=== PATIENT | female | born 1990 | race Hispanic/Latino ===

== ENCOUNTER 2018-06-01 21:08 | Emergency (ER) | payer BC ==
[2018-06-01 22:39] LABS: Absolute Lymphocytes (CBC) 2.3 K/uL (0.7-4.9); Absolute Monocytes 0.6 K/uL (0.1-1.3); Absolute Neutrophil 3.8 K/uL (1.8-8.0); Basophils % 0.7 % (0-1.3); Hematocrit 40.7 % (36.0-45.0); Lymphocytes % 33.4 % (15.3-44.8); MCH 31.1 pg (27.0-35.0); MCV 90.3 fL (80-100); MPV 8.4 fL (7.6-11.3); Monocytes % 8.9 % (3.3-12.3)
[2018-06-01 22:50] LABS: ALT/SGPT 41 U/L (12-78); AST/SGOT 26 U/L (15-37); Albumin 3.5 g/dL (3.4-5.0); Alkaline Phosphatase 69 U/L (45-117); BUN Blood Urea Nitrogen 9 mg/dL (7-18); Bicarbonate 23 mmol/L (21-32); Bilirubin Direct < 0.1 mg/dL (0-0.2); Bilirubin Total 0.2 mg/dL (0.2-1.0); Glucose Level 111 mg/dL (74-106); Lipase 116 U/L (73-393); Sodium Level 140 mmol/L (136-145)
--- NOTE | 2018-06-02 00:37 | EDPHYS ---
Physician Documentation [facility] Name: Olimpia Paz Age: 28 yrs Sex: Female : 1990 Arrival Date: 06/01/2018 Time: 21:12 Bed 6 Private MD: ED Physician Marvin Hahn HPI: 06/01 21:48 This 28 yrs old Female presents to ER via Ambulatory with complaints of Pelvic ps1 Problem. 21:48 patient presenting with lower abdominal pain after having oocyte retrieval in [place]. ps1 Patient had procedure 5 days ago and now has persistent pain. Rated as moderate. Worse with movement and riding in car. No fever. . 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 - Social history:: Smoking status: Patient/guardian denies using tobacco. - Ebola Screening: : Patient denies travel to an Ebola-affected area in the 21 days before illness onset. ROS: 21:48 Constitutional: Negative for fever, chills, and weight loss, Eyes: Negative for injury, ps1 pain, redness, and discharge, ENT: Negative for injury, pain, and discharge, Cardiovascular: Negative for chest pain, palpitations, and edema, Respiratory: Negative for shortness of breath, cough, wheezing, and pleuritic chest pain, Back: Negative for injury and pain, MS/Extremity: Negative for injury and deformity, Skin: Negative for injury, rash, and discoloration, Neuro: Negative for headache, weakness, numbness, tingling, and seizure. 21:48 Abdomen/GI: Positive for abdominal pain. Exam: 21:48 Constitutional: This is a well developed, well nourished patient who is awake, alert, ps1 and in no acute distress. Head/Face: Normocephalic, atraumatic. Eyes: Pupils equal round and reactive to light, extra-ocular motions intact. Lids and lashes normal. Conjunctiva and sclera are non-icteric and not injected. Chest/axilla: Normal chest wall appearance and motion. Nontender with no deformity. No lesions are appreciated. Cardiovascular: Regular rate and rhythm. No gallops, murmurs, or rubs. Normal PMI, no JVD. No pulse deficits. Respiratory: Lungs have equal breath sounds bilaterally, clear to auscultation and percussion. No rales, rhonchi or wheezes noted. No increased work of breathing, no retractions or nasal flaring. Skin: Warm, dry with normal turgor. Normal color with no rashes, no lesions, and no evidence of cellulitis. 21:48 Abdomen/GI: Inspection: abdomen appears normal, Bowel sounds: normal, Palpation: mild abdominal tenderness. Vital Signs: 21:16 BP 142 / 85; Pulse 84; Resp 18; Temp 97.6(TE); Pulse Ox 100% on R/A; Weight 117.93 kg aj1 (R); Height 5 ft. 6 in. (167.64 cm) (R); Pain 10/10; 22:07 BP 116 / 86; Pulse 83; Resp 18; Pulse Ox 98% on R/A; tl2 23:00 BP 111 / 93; Pulse 65; Resp 18; Pulse Ox 99% on R/A; tl2 23:50 BP 114 / 80; Pulse 65; Resp 18; Pulse Ox 97% on R/A; tl2 06/02 00:49 BP 106 / 84; Pulse 72; Resp 18; Pulse Ox 99% on R/A; Pain 2/10; tl2 06/01 21:16 Body Mass Index 41.96 (117.93 kg, 167.64 cm) [facility] MDM: 06/01 22:08 Patient medically screened. ps1 06/02 00:37 Data reviewed: vital signs, nurses notes, lab test result(s), radiologic studies, CT ps1 scan, and as a result, I will discharge patient. Counseling: I had a detailed discussion with the patient and/or guardian regarding: the historical points, exam findings, and any diagnostic results supporting the discharge/admit diagnosis, the need for outpatient follow up. 06/01 22:17 Order name: Basic Metabolic Panel ps1 06/01 22:17 Order name: CBC with Diff ps1 06/01 22:17 Order name: Creatinine for Radiology; Complete Time: 22:49 ps1 06/01 22:17 Order name: Hepatic Function ps1 06/01 22:17 Order name: Lipase ps1 06/01 22:18 Order name: Basic Metabolic Panel; Complete Time: 22:52 EDAZ 06/01 22:17 Order name: IV Saline Lock; Complete Time: 22:18 [facility] 06/01 22:17 Order name: Labs collected and sent; Complete Time: 22:18 [facility] 06/01 22:17 Order name: CT Abd/Pelvis - W/Contrast ps1 06/01 22:18 Order name: CBC with Automated Diff; Complete Time: 22:49 EDMS 06/01 22:18 Order name: Liver (Hepatic) Function; Complete Time: 22:52 EDMS 06/01 22:18 Order name: Lipase; Complete Time: 22:52 EDMS Administered Medications: No medications were administered Disposition: 06/02/18 00:36 Discharged to Home. Impression: Lower abdominal pain, unspecified. - Condition is Stable. - Discharge Instructions: Abdominal Pain, Adult. - Prescriptions for Anaprox DS 550 mg Oral Tablet - take 1 tablet by ORAL route every 12 hours As needed; 20 tablet. Medrol (Bernardo) 4 mg Oral Tablets, Dose Pack - take 1 tablet by ORAL route as directed - follow package instructions; 1 packet. - Medication Reconciliation Form, Thank You Letter, Antibiotic Education, Prescription Opioid Use form. - Follow up: Private Physician; When: As needed; Reason: Recheck today's complaints, Continuance of care, Re-evaluation by your physician. Follow up: Emergency Department; When: As needed; Reason: Fever > 102 F, Trouble breathing, Worsening of condition. - Problem is new. - Symptoms are unchanged. Signatures: Dispatcher [facility] Claudette Morton RN RN aj1 Eve Russell RN RN tl2 Marvin Hahn MD MD ps1 Corrections: (The following items were deleted from the chart) 00:51 00:36 06/02/2018 00:36 Discharged to Home. Impression: Lower abdominal pain, tl2 unspecified. Condition is Stable. Forms are Medication Reconciliation Form, Thank You Letter, Antibiotic Education, Prescription Opioid Use. Follow up: Private Physician; When: As needed; Reason: Recheck today's complaints, Continuance of care, Re-evaluation by your physician. Follow up: Emergency Department; When: As needed; Reason: Fever > 102 F, Trouble breathing, Worsening of condition. Problem is new. Symptoms are unchanged. ps1
--- NOTE | 2018-06-02 00:37 | ER ---
Nurse's Notes [facility] Name: Olimpia Paz Age: 28 yrs Sex: Female : 1990 Arrival Date: 06/01/2018 Time: 21:12 Bed 6 Private MD: Diagnosis: Lower abdominal pain, unspecified Presentation: 06/01 21:13 Presenting complaint: Patient states: She is in the process of IVF, on Monday the did aj1 the egg retrieval, now she has been having suprapubic pain for the past 5 days. Also reports N/V. Denies fever. States she has tried to contact the clinic that has been doing her IVF but she couldn't get a hold of them. Reports heavy vaginal bleeding that started yesterday. Transition of care: patient was not received from another setting of care. Onset of symptoms was May 27, 2018. Risk Assessment: Do you want to hurt yourself or someone else? Patient reports no desire to harm self or others. Initial Sepsis Screen: Does the patient meet any 2 criteria? No. Patient's initial sepsis screen is negative. Does the patient have a suspected source of infection? No. Patient's initial sepsis screen is negative. Care prior to arrival: None. 21:13 Method Of Arrival: Ambulatory aj1 21:13 Acuity: ESTEFANI 3 aj1 Triage Assessment: 21:16 General: Appears in no apparent distress. comfortable, Behavior is calm, cooperative, aj1 appropriate for age. Pain: Complains of pain in suprapubic area Pain currently is 10 out of 10 on a pain scale. Neuro: Level of Consciousness is awake, alert, obeys commands. Cardiovascular: Patient's skin is warm and dry. Respiratory: Airway is patent Respiratory effort is even, unlabored, Respiratory pattern is regular, symmetrical. : Reports vaginal bleeding that is bright red, heavy flow. Derm: Skin is pink, warm \T\ dry. normal. 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 - Social history:: Smoking status: Patient/guardian denies using tobacco. - Ebola Screening: : Patient denies travel to an Ebola-affected area in the 21 days before illness onset. Screenin:29 Abuse screen: Denies threats or abuse. Nutritional screening: No deficits noted. tl2 Tuberculosis screening: No symptoms or risk factors identified. Fall Risk None identified. Assessment: 21:29 General: Appears in no apparent distress. uncomfortable, Behavior is calm, cooperative, tl2 appropriate for age. Pain: Complains of pain in suprapubic area Pain does not radiate. Pain currently is 10 out of 10 on a pain scale. Neuro: Level of Consciousness is awake, alert, obeys commands, Oriented to person, place, time, situation. Cardiovascular: Denies chest pain. Respiratory: Airway is patent Respiratory effort is even, unlabored, Respiratory pattern is regular, symmetrical. GI: Reports nausea, vomiting. : Reports vaginal bleeding that is moderate flow. Derm: Skin is pink, warm \T\ dry. 22:30 Reassessment: Patient appears in no apparent distress at this time. Patient and/or tl2 family updated on plan of care and expected duration. Pain level reassessed. Patient is alert, oriented x 3, equal unlabored respirations, skin warm/dry/pink. 23:50 Reassessment: Patient appears in no apparent distress at this time. Patient and/or tl2 family updated on plan of care and expected duration. Pain level reassessed. Patient is alert, oriented x 3, equal unlabored respirations, skin warm/dry/pink. Awaiting CT results. 06/02 00:49 Reassessment: Patient appears in no apparent distress at this time. Patient and/or tl2 family updated on plan of care and expected duration. Pain level reassessed. Patient is alert, oriented x 3, equal unlabored respirations, skin warm/dry/pink. Pt verbalized understanding of discharge instructions, need for follow up and prescription usage Patient states feeling better. Vital Signs: 06/01 21:16 BP 142 / 85; Pulse 84; Resp 18; Temp 97.6(TE); Pulse Ox 100% on R/A; Weight 117.93 kg aj1 (R); Height 5 ft. 6 in. (167.64 cm) (R); Pain 10/10; 22:07 BP 116 / 86; Pulse 83; Resp 18; Pulse Ox 98% on R/A; tl2 23:00 BP 111 / 93; Pulse 65; Resp 18; Pulse Ox 99% on R/A; tl2 23:50 BP 114 / 80; Pulse 65; Resp 18; Pulse Ox 97% on R/A; tl2 06/02 00:49 BP 106 / 84; Pulse 72; Resp 18; Pulse Ox 99% on R/A; Pain 2/10; tl2 06/01 21:16 Body Mass Index 41.96 (117.93 kg, 167.64 cm) aj1 ED Course: 06/01 21:12 Patient arrived in ED. es 21:12 Kieran Bran MD is Private Physician. es 21:16 Triage completed. aj1 21:16 Arm band placed on Patient placed in an exam room. aj1 21:29 Marvin Hahn MD is Attending Physician. ps1 21:29 Eve Russell, RN is Primary Nurse. tl2 21:29 Patient has correct armband on for positive identification. Bed in low position. Call tl2 light in reach. Side rails up X 1. Adult w/ patient. 21:53 Inserted saline lock: 20 gauge in right antecubital area, using aseptic technique. tl2 Blood collected. 23:[address] via wheelchair. kw1 23:33 CT Abd/Pelvis - W/Contrast In Process Unspecified. EDMS 23:35 CT completed. Patient tolerated procedure well. Patient moved back from CT. kw1 06/02 00:49 No provider procedures requiring assistance completed. IV discontinued, intact, tl2 bleeding controlled, No redness/swelling at site. Pressure dressing applied. Administered Medications: No medications were administered Outcome: 00:36 Discharge ordered by . ps1 00:49 Discharged to home ambulatory, with friend. tl2 00:49 Condition: stable 00:49 Discharge instructions given to patient, Instructed on discharge instructions, follow up and referral plans. medication usage, Demonstrated understanding of instructions, follow-up care, medications, Prescriptions given X 2. 00:51 Patient left the ED. tl2 Signatures: Dispatcher [employer] Claudette Clarke, RN RN aj1 Rupali Camara Taylor, RN RN tl2 Marvin Hahn MD MD ps1 Melony Hannon kw1
--- NOTE | 2018-06-02 23:29 | RAD REPORT ---
EXAM DESCRIPTION: CT - Abdomen Pelvis W Contrast - 06/02/2018 1:14 am CLINICAL HISTORY: Abdominal pain with nausea and vomiting for 5 days. Vaginal bleeding COMPARISON: none. TECHNIQUE: Computed axial tomography of the abdomen pelvis was obtained. 100 cc Isovue-300 was admin istered intravenously. Oral contrast was not requested which limits evaluation of bowel. Preliminary report was generated by [employer] and reviewed prior to this dictation All CT scans are performed using dose optimization technique as appropriate and may include automated exposure control or mA/KV adjustment according to patient size. FINDINGS: The liver, spleen, pancreas, adrenal and kidneys appear unremarkable. There is no evidence of diverticulitis. The appendix is normal The ovaries are enlarged containing prominent follicles. Significant free fluid is not noted IMPRESSION: Enlarged ovaries with prominent follicles secondary to stimulation. Otherwise, unremarkable exam
== END 2018-06-02 00:51 | disposition home or self-care (01) ==
LOC: ER 21:08
DX: R10.30 Lower abdominal pain, unspecified (principal)
CPT/HCPCS: 36415; 74177; 80048; 80076; 83690; 85025; 99284; Q9967

== ENCOUNTER 2018-06-05 22:23 | Emergency (ER) | payer BC ==
[2018-06-05] MEDS ORDERED: CYCLOBENZAPRINE 10 MG TAB ONE (23:23)
[2018-06-05] MEDS ORDERED: TRAMADOL HCL 50 MG TAB ONE (23:24)
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
== END 2018-06-06 00:23 | disposition home or self-care (01) ==
LOC: ER 22:23
DX: S50.11XA Contusion of right forearm, initial encounter (principal); V49.49XA Driver injured in collision with other motor vehicles in traffic accident, initial encounter
CPT/HCPCS: 71046; 99283

== ENCOUNTER 2018-08-24 16:12 | Emergency (ER) | payer BC ==
[2018-08-24 17:26] LABS: Urine Blood NEGATIVE (NEG); Urine Glucose NEGATIVE (NEG); Urine Protein NEGATIVE (NEG); Urine Specific Gravity 1.025 (1.005-1.030)
[2018-08-24 17:30] LABS: Urine Bacteria 20-50 /HPF (<20); Urine Culture Reflex Order NOT NEEDED; Urine RBC <5 /HPF (NONE SEEN)
--- NOTE | 2018-08-24 18:54 | ER ---
Nurse's Notes [facility] Name: Olimpia Paz Age: 28 yrs Sex: Female : 1990 Arrival Date: 08/24/2018 Time: 16:15 Bed 12 Private MD: None, None Diagnosis: related conditions, unspecified Presentation: 08/24 16:16 Presenting complaint: Patient states: n/v, blurry vision, body aches x 3 days. Denies sv fever. Transition of care: patient was not received from another setting of care. Onset of symptoms was August 21, 2018. Care prior to arrival: None. 16:16 Method Of Arrival: Ambulatory sv 16:16 Acuity: ESTEFANI 4 sv 16:41 Risk Assessment: Do you want to hurt yourself or someone else? Patient reports no sv desire to harm self or others. Initial Sepsis Screen: Does the patient meet any 2 criteria? No. Patient's initial sepsis screen is negative. Does the patient have a suspected source of infection? No. Patient's initial sepsis screen is negative. Triage Assessment: 16:16 General: Appears in no apparent distress. comfortable, Behavior is calm, cooperative, sv appropriate for age. General: Reports body aches. Pain: Denies pain. EENT: Reports blurred vision. Neuro: Level of Consciousness is awake, alert, obeys commands, Oriented to person, place, time, situation, Moves all extremities. Full function Gait is steady, Speech is normal. Respiratory: Respiratory effort is even, unlabored, Respiratory pattern is regular, symmetrical. GI: Reports nausea, vomiting. Derm: Skin is pink, warm \T\ dry. Historical: - Allergies: 16:17 No Known Allergies; sv - PMHx: 16:17 Asthma; sv - PSHx: 16:17 None; wrist; sv - Immunization history:: Flu vaccine is not up to date. Adult Immunizations. - Social history:: Smoking status: Patient/guardian denies using tobacco. - Ebola Screening: : No symptoms or risks identified at this time. Screenin:40 Abuse screen: Denies threats or abuse. Denies injuries from another. Nutritional sv screening: No deficits noted. Tuberculosis screening: No symptoms or risk factors identified. Fall Risk None identified. Assessment: 16:40 Reassessment: Patient appears in no apparent distress at this time. No changes from sv previously documented assessment. Patient and/or family updated on plan of care and expected duration. Pain level reassessed. Patient is alert, oriented x 3, equal unlabored respirations, skin warm/dry/pink. 18:10 Reassessment: Patient appears in no apparent distress at this time. No changes from sv previously documented assessment. Patient and/or family updated on plan of care and expected duration. Pain level reassessed. Patient is alert, oriented x 3, equal unlabored respirations, skin warm/dry/pink. 18:58 Reassessment: Patient appears in no apparent distress at this time. No changes from sv previously documented assessment. Patient and/or family updated on plan of care and expected duration. Pain level reassessed. Patient is alert, oriented x 3, equal unlabored respirations, skin warm/dry/pink. Vital Signs: 16:17 BP 120 / 88; Pulse 95; Resp 16; Temp 98.6; Pulse Ox 100% ; Weight 99.79 kg; Height 5 sv ft. 6 in. (167.64 cm); Pain 0/10; 16:17 Body Mass Index 35.51 (99.79 kg, 167.64 cm) sv ED Course: 16:15 Patient arrived in ED. sb2 16:15 None, None is Private Physician. sb2 16:17 Triage completed. sv 16:18 Arm band placed on. sv 16:19 Jerry Levin PA is PHCP. cp 16:19 Jerry Mascorro MD is Attending Physician. cp 16:40 Patient has correct armband on for positive identification. Adult w/ patient. Door sv closed. 16:41 Awaiting lab results. sv 17:53 Test, Serum Sent. la1 18:36 Awaiting lab results. sv 18:58 No provider procedures requiring assistance completed. Patient did not have IV access sv during this emergency room visit. Administered Medications: No medications were administered Outcome: 18:53 Discharge ordered by . cp 18:58 Discharged to home ambulatory, with friend. sv 18:58 Condition: stable 18:58 Discharge instructions given to patient, Instructed on discharge instructions, follow up and referral plans. medication usage, Demonstrated understanding of instructions, follow-up care, medications, Prescriptions given X 1. 18:58 Patient left the ED. sv Signatures: Elba Mora RN RN Marshal Lanier RN RN la1 Jerry Levin PA PA cp Claribel, Saray sb2
--- NOTE | 2018-08-24 18:54 | EDPHYS ---
Physician Documentation [facility] Name: Olimpia Paz Age: 28 yrs Sex: Female : 1990 Arrival Date: 08/24/2018 Time: 16:15 Bed 12 Private MD: None, None ED Physician Jerry Mascorro HPI: 08/24 16:35 This 28 yrs old Female presents to ER via Ambulatory with complaints of Flu cp Symptoms. 16:35 body aches, nausea and vomiting, blurry vision. cp 16:35 Onset: The symptoms/episode began/occurred 3 day(s) ago. Severity of symptoms: in the cp emergency department the symptoms are unchanged. Historical: - Allergies: 16:17 No Known Allergies; sv - PMHx: 16:17 Asthma; sv - PSHx: 16:17 None; wrist; sv - Immunization history:: Flu vaccine is not up to date. Adult Immunizations. - Social history:: Smoking status: Patient/guardian denies using tobacco. - Ebola Screening: : No symptoms or risks identified at this time. ROS: 16:40 Constitutional: Positive for body aches, Negative for fever, poor PO intake. cp 16:40 Eyes: Positive for blurry vision, Negative for discharge, redness, vision loss. cp 16:40 ENT: Negative for drainage from ear(s), ear pain, sore throat, difficulty swallowing, difficulty handling secretions. 16:40 Respiratory: Negative for cough, shortness of breath, wheezing. 16:40 Abdomen/GI: Positive for nausea and vomiting, Negative for abdominal pain, diarrhea, constipation. 16:40 : Negative for urinary symptoms, vaginal bleeding, vaginal discharge. 16:40 Skin: Negative for cellulitis, rash. 16:40 Neuro: Positive for headache, Negative for altered mental status, dizziness, syncope, weakness. 16:40 All other systems are negative. Exam: 16:45 Constitutional: The patient appears in no acute distress, alert, awake, comfortable, cp non-toxic, well developed, well nourished. 16:45 Head/Face: Normocephalic, atraumatic. cp 16:45 Eyes: Periorbital structures: appear normal, Pupils: equal, round, and reactive to light and accomodation, Extraocular movements: intact throughout, Conjunctiva: normal, no exudate, no injection, Sclera: no appreciated abnormality, Lids and lashes: appear normal, bilaterally. 16:45 ENT: External ear(s): are unremarkable, Ear canal(s): are normal, clear, TM's: bulging, is not appreciated, bilaterally, dullness, bilaterally, erythema, is not appreciated, bilaterally, Nose: is normal, Mouth: Lips: moist, Oral mucosa: pink and intact, moist, Posterior pharynx: is normal, airway is patent, no erythema, no exudate. 16:45 Neck: ROM/movement: is normal, is supple, without pain, no range of motions limitations, no meningismus, no nuchal rigidity. 16:45 Chest/axilla: Inspection: normal, Palpation: is normal, no crepitus, no tenderness. 16:45 Cardiovascular: Rate: normal, Rhythm: regular. 16:45 Respiratory: the patient does not display signs of respiratory distress, Respirations: normal, no use of accessory muscles, no retractions, no splinting, no tachypnea, labored breathing, is not present, Breath sounds: are clear throughout, no decreased breath sounds, no stridor, no wheezing. 16:45 Abdomen/GI: Exam negative for discomfort, distension, guarding, Inspection: abdomen appears normal. 16:45 Back: CVA tenderness, is absent. 16:45 Skin: cellulitis, is not appreciated, no rash present. 16:45 Neuro: Orientation: to person, place \T\ time. Mentation: is normal, Cerebellar function: is grossly normal, Motor: is normal, Sensation: is normal. Vital Signs: 16:17 BP 120 / 88; Pulse 95; Resp 16; Temp 98.6; Pulse Ox 100% ; Weight 99.79 kg; Height 5 sv ft. 6 in. (167.64 cm); Pain 0/10; 16:17 Body Mass Index 35.51 (99.79 kg, 167.64 cm) sv MDM: 16:19 Patient medically screened. cp 17:00 Differential Diagnosis flu, UTI, strep throat, . cp 18:52 Data reviewed: vital signs, nurses notes, lab test result(s), and as a result, I will cp discharge patient. 18:52 Counseling: I had a detailed discussion with the patient and/or guardian regarding: the cp historical points, exam findings, and any diagnostic results supporting the discharge/admit diagnosis, lab results, the need for outpatient follow up, an OB/Gyne specialist, to return to the emergency department if symptoms worsen or persist or if there are any questions or concerns that arise at home. 08/24 16:28 Order name: Urine Microscopic Only; Complete Time: 17:32 cp 08/24 17:32 Interpretation: Normal except: UBACT 20-50; SQEPI 20-50. 08/24 16:28 Order name: Influenza Screen (a \T\ B); Complete Time: 17:28 08/24 16:28 Order name: Urine Dipstick-Ancillary (obtain specimen); Complete Time: 16:39 08/24 16:53 Order name: Urine Dipstick--Ancillary (enter results); Complete Time: 17:28 08/24 17:28 Interpretation: Reviewed. 08/24 16:53 Order name: Urine --Ancillary (enter results); Complete Time: 17:28 bd 08/24 17:28 Interpretation: Abnormal: URINE PREG POS. 08/24 17:34 Order name: Test, Serum 08/24 16:28 Order name: Urine Test (obtain specimen); Complete Time: 16:39 cp Administered Medications: No medications were administered Disposition: 19:05 Chart complete. cp Disposition: 08/24/18 18:53 Discharged to Home. Impression: related conditions, unspecified. - Condition is Stable. - Discharge Instructions: First Trimester of . - Prescriptions for Vitamin 27- 0.8 mg Oral Tablet - take 1 tablet by ORAL route once daily; 30 tablet. - Medication Reconciliation Form, Thank You Letter, Antibiotic Education, Prescription Opioid Use form. - Follow up: Private Physician; When: 1 week; Reason: Recheck today's complaints. - Problem is new. - Symptoms are unchanged. Addendum: 08/27/2018 06:51 Co-signature as Attending Physician, Jerry Mascorro MD I agree with the assessment and c lucas plan of care. Signatures: Dispatcher [employer] Elba Rascon RN RN sv Anderson, Corey, MD MD cha Page, Corey, PA PA cp Corrections: (The following items were deleted from the chart) 08/24 18:58 18:53 08/24/2018 18:53 Discharged to Home. Impression: related conditions, sv unspecified. Condition is Stable. Forms are Medication Reconciliation Form, Thank You Letter, Antibiotic Education, Prescription Opioid Use. Follow up: Private Physician; When: 1 week; Reason: Recheck today's complaints. Problem is new. Symptoms are unchanged. cp
== END 2018-08-24 18:58 | disposition home or self-care (01) ==
LOC: ER 16:12
DX: Z33.1 Pregnant state, incidental (principal)
CPT/HCPCS: 36415; 81003; 81015; 81025; 84703; 87804; 99283

== ENCOUNTER 2018-09-02 18:39 | Emergency (ER) | payer BC ==
--- OUTSIDE RECORDS SUMMARY | 2018-09-02 18:41 | XMS REPORT ---
:1990 [facility] Address [address] [place] [address] Dr. Wiley [address] [place] [id number] Care Team Providers Name Role Phone Unavailable Unavailable Unavailable Problems This patient has no known problems. Allergies, Adverse Reactions, Alerts This patient has no known allergies or adverse reactions. Medications This patient has no known medications.
[2018-09-02 20:00] LABS: Absolute Lymphocytes (CBC) 2.6 K/uL (0.7-4.9); Absolute Monocytes 0.7 K/uL (0.1-1.3); Absolute Neutrophil 6.3 K/uL (1.8-8.0); Basophils % 1.5 % (0-1.3); Eosinophils % 1.1 % (0-4.4); Hematocrit 41.8 % (36.0-45.0); Lymphocytes % 26.6 % (15.3-44.8); MPV 8.1 fL (7.6-11.3); RBC Red Blood Cell Count 4.56 M/uL (3.86-4.86)
[2018-09-02 20:09] LABS: Urine Blood 2+ (NEG); Urine Glucose NEGATIVE (NEG); Urine Protein 1+ (NEG); Urine Specific Gravity >1.030 (1.005-1.030); Urine pH 5.5 (5.0-7.0)
[2018-09-02 20:29] LABS: Potassium 4.2 mmol/L (3.5-5.1)
--- NOTE | 2018-09-02 21:19 | RAD REPORT ---
EXAM DESCRIPTION: US - Transvaginal OB - 09/02/2018 8:56 pm CLINICAL HISTORY: VAGINAL BLEEDING COMPARISON: No comparisonsNo comparisons FINDINGS: The uterus measures 9.6 x 5.8 x 4.7 cm. No IUP is evident. Endometrium is mildly thickened measuring 10 mm in heterogenous. The left ovary was obscured by bowel gas. The right ovary is normal in size, shape and echotexture me asuring 4.0 x 3.6 x 2.3 cm. Normal Doppler blood flow was noted in the right ovary. IMPRESSION: No IUP is identified. The endometrial stripe is thickened slightly heterogenous. The pat ient has an elevated HCG level, the findings would indicate a of unknown location at follow -up serial HCG levels and pelvic sonography in 7-10 days would be recommended.
--- NOTE | 2018-09-02 21:23 | EDPHYS ---
Physician Documentation [facility] Name: Olimpia Paz Age: 28 yrs Sex: Female : 1990 Arrival Date: 09/02/2018 Time: 18:42 Bed 16 Private MD: ED Physician Jermaine Stringer HPI: 09/02 21:00 This 28 yrs old Female presents to ER via Ambulatory with complaints of pm1 Vaginal Bleeding, + Preg <12wks. 21:00 The patient presents to the emergency department with vaginal bleeding, with clots. The pm1 estimated gestational age is 5 weeks. course: care: private OB physician, Ultrasound: the patient has not had an ultrasound. Previous pregnancies: in previous pregnancies patient has had ectopic . Associated signs and symptoms: Pertinent negatives: abdominal pain, chest pain, dysuria, fever, nausea, shortness of breath, vomiting. The patient has been recently seen by a physician: Has appointment with freight representative on . Patient with IVF and implantation of two eggs. 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 - Social history:: Smoking status: Patient/guardian denies using tobacco. - Ebola Screening: : No symptoms or risks identified at this time. ROS: 21:00 Constitutional: Negative for fever, chills, and weight loss, Eyes: Negative for injury, pm1 pain, redness, and discharge, ENT: Negative for injury, pain, and discharge, Neck: Negative for injury, pain, and swelling, Cardiovascular: Negative for chest pain, palpitations, and edema, Respiratory: Negative for shortness of breath, cough, wheezing, and pleuritic chest pain. 21:00 Abdomen/GI: Negative for abdominal pain, nausea, vomiting, diarrhea, and constipation, Back: Negative for injury and pain. 21:00 MS/Extremity: Negative for injury and deformity, Skin: Negative for injury, rash, and discoloration, Neuro: Negative for headache, weakness, numbness, tingling, and seizure. 21:00 : Positive for vaginal bleeding, Negative for urinary symptoms, flank pain, burning with urination, vaginal itching. Exam: 21:00 Constitutional: This is a well developed, well nourished patient who is awake, alert, pm1 and in no acute distress. Head/Face: Normocephalic, atraumatic. Eyes: Pupils equal round and reactive to light, extra-ocular motions intact. Lids and lashes normal. Conjunctiva and sclera are non-icteric and not injected. Cornea within normal limits. Periorbital areas with no swelling, redness, or edema. ENT: Nares patent. No nasal discharge, no septal abnormalities noted. Tympanic membranes are normal and external auditory canals are clear. Oropharynx with no redness, swelling, or masses, exudates, or evidence of obstruction, uvula midline. Mucous membranes moist. Neck: Trachea midline, no thyromegaly or masses palpated, and no cervical lymphadenopathy. Supple, full range of motion without nuchal rigidity, or vertebral point tenderness. No Meningismus. Chest/axilla: Normal chest wall appearance and motion. Nontender with no deformity. No lesions are appreciated. Cardiovascular: Regular rate and rhythm with a normal S1 and S2. No gallops, murmurs, or rubs. Normal PMI, no JVD. No pulse deficits. Respiratory: Lungs have equal breath sounds bilaterally, clear to auscultation and percussion. No rales, rhonchi or wheezes noted. No increased work of breathing, no retractions or nasal flaring. 21:00 Back: No spinal tenderness. No costovertebral tenderness. Full range of motion. Skin: Warm, dry with normal turgor. Normal color with no rashes, no lesions, and no evidence of cellulitis. MS/ Extremity: Pulses equal, no cyanosis. Neurovascular intact. Full, normal range of motion. 21:00 Abdomen/GI: Inspection: abdomen appears normal, Bowel sounds: normal, Palpation: abdomen is soft and non-tender, mass, is not appreciated, rebound tenderness, is not appreciated. 21:00 Neuro: Orientation: is normal, Motor: is normal, moves all fours. Vital Signs: 19:12 BP 147 / 97; Pulse 102; Resp 18; Temp 97.9; Pulse Ox 98% on R/A; Weight 99.79 kg; la1 Height 5 ft. 6 in. (167.64 cm); 20:17 BP 133 / 82; Pulse 94; Resp 17 S; Pulse Ox 100% on R/A; cc3 21:14 BP 126 / 87; Pulse 95; Resp 17 S; Pulse Ox 100% on R/A; cc3 19:12 Body Mass Index 35.51 (99.79 kg, 167.64 cm) la1 MDM: 19:34 Patient medically screened. pm1 20:52 Data reviewed: vital signs. Data interpreted: Pulse oximetry: on room air is 98 %. pm1 Interpretation: normal. 21:22 Counseling: I had a detailed discussion with the patient and/or guardian regarding: the pm1 historical points, exam findings, and any diagnostic results supporting the discharge/admit diagnosis, lab results, radiology results, the need for outpatient follow up, to return to the emergency department if symptoms worsen or persist or if there are any questions or concerns that arise at home. 21:22 ED course: Patient with vaginal bleeding with clots that started today. No abdominal pm1 pain or back pain. with IVF and implantation. Approximately 5 weeks . Since patient does not have any back or abdominal pain or tenderness will discharge the patient to repeat beta HCG in 48 hours with possible U/S in the ER here.. 09/02 19:28 Order name: Quantitative Hcg; Complete Time: 20:32 pm1 09/02 19:28 Order name: Abo/rh Typing; Complete Time: 20:37 pm1 09/02 19:28 Order name: Basic Metabolic Panel; Complete Time: 20:32 pm1 09/02 19:28 Order name: CBC with Diff; Complete Time: 20:32 pm1 09/02 19:39 Order name: Urine Dipstick--Ancillary (enter results); Complete Time: 20:32 mw2 09/02 19:39 Order name: Urine --Ancillary (enter results); Complete Time: 20:32 mw2 09/02 19:28 Order name: Urine Test (obtain specimen); Complete Time: 19:29 pm1 09/02 19:28 Order name: IV Saline Lock; Complete Time: 19:50 pm1 09/02 19:28 Order name: Labs collected and sent; Complete Time: 19:51 pm1 09/02 19:28 Order name: NPO; Complete Time: 19:51 pm1 09/02 19:28 Order name: Urine Dipstick-Ancillary (obtain specimen); Complete Time: 19:29 pm1 09/02 19:28 Order name: US Transvaginal Ob; Complete Time: 21:22 pm1 09/02 20:40 Order name: ABO/RH no charge; Complete Time: 20:41 EDMS Administered Medications: No medications were administered Disposition: 09/03 02:24 Co-signature as Attending Physician, Jermaine Stringer MD. pkl Disposition: 09/02/18 21:23 Discharged to Home. Impression: Threatened . - Condition is Stable. - Discharge Instructions: Threatened Miscarriage, Pelvic Rest. - Medication Reconciliation Form, Thank You Letter form. - Follow up: Private Physician; When: 48 Hours; Reason: Recheck today's complaints, Continuance of care, Repeat Beta-HCG (48 Hours), Re-evaluation by your physician. Follow up: Emergency Department; When: 48 Hours; Reason: Recheck today's complaints, Repeat Beta-HCG (48 Hours). - Problem is new. - Symptoms have improved. Signatures: Dispatcher [employer] EDMS Jermaine Stringer MD MD pkMarshal Dominguez RN RN la1 Gennaro Pickens, PAEDIATRIC PHYSIOTHERAPIST PAEDIATRIC PHYSIOTHERAPIST pm1 Ariana Winchester cc3 Corrections: (The following items were deleted from the chart) 09/02 21:38 21:23 09/02/2018 21:23 Discharged to Home. Impression: Threatened . Condition cc3 is Stable. Forms are Medication Reconciliation Form, Thank You Letter, Antibiotic Education, Prescription Opioid Use. Follow up: Private Physician; When: 48 Hours; Reason: Recheck today's complaints, Continuance of care, Repeat Beta-HCG (48 Hours), Re-evaluation by your physician. Follow up: Emergency Department; When: 48 Hours; Reason: Recheck today's complaints, Repeat Beta-HCG (48 Hours). Problem is new. Symptoms have improved. pm1
--- NOTE | 2018-09-02 21:23 | ER ---
Nurse's Notes [facility] Name: Olimpia Paz Age: 28 yrs Sex: Female : 1990 Arrival Date: 09/02/2018 Time: 18:42 Bed 16 Private MD: Diagnosis: Threatened Presentation: 09/02 19:11 Presenting complaint: Patient states: I am via AVF and told I was 5 weeks la1 today. I started bleeding a few minutes ago when I wiped. Pt denies pain or cramping. Transition of care: patient was not received from another setting of care. Onset of symptoms was September 02, 2018. Risk Assessment: Do you want to hurt yourself or someone else? Patient reports no desire to harm self or others. Initial Sepsis Screen: Does the patient meet any 2 criteria? No. Patient's initial sepsis screen is negative. Does the patient have a suspected source of infection? No. Patient's initial sepsis screen is negative. Care prior to arrival: None. 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 - Social history:: Smoking status: Patient/guardian denies using tobacco. - Ebola Screening: : No symptoms or risks identified at this time. Screenin:15 Abuse screen: Denies threats or abuse. Denies injuries from another. Nutritional cc3 screening: No deficits noted. Tuberculosis screening: No symptoms or risk factors identified. Fall Risk Ambulatory Aid- None/Bed Rest/Nurse Assist (0 pts). Gait- Normal/Bed Rest/Wheelchair (0 pts) Mental Status- Oriented to own ability (0 pts). Assessment: 19:15 Obstetrical Assessment: General assessment: awake and alert, skin warm and dry, cc3 respirations even and unlabored. General: Appears in no apparent distress. comfortable, Behavior is calm, cooperative, appropriate for age. Pain: Denies pain. Neuro: Level of Consciousness is awake, alert, obeys commands, Oriented to person, place, time, situation, Appropriate for age. Cardiovascular: Denies chest pain. Respiratory: Airway is patent Respiratory effort is even, unlabored, Respiratory pattern is regular, symmetrical. GI: Abdomen is round non-distended. : Reports vaginal bleeding that is spotty, since today. EENT: No signs and/or symptoms were reported regarding the EENT system. Derm: No signs and/or symptoms reported regarding the dermatologic system. Musculoskeletal: Circulation, motion, and sensation intact. Range of motion: intact in all extremities. 20:20 Reassessment: Patient appears in no apparent distress at this time. Patient and/or cc3 family updated on plan of care and expected duration. Pain level reassessed. Patient is alert, oriented x 3, equal unlabored respirations, skin warm/dry/pink. 21:17 Reassessment: Patient appears in no apparent distress at this time. Patient and/or cc3 family updated on plan of care and expected duration. Pain level reassessed. Patient is alert, oriented x 3, equal unlabored respirations, skin warm/dry/pink. 21:35 Reassessment: TANVI Feldman discharged the patient home, no prescription given. IV cannula cc3 removed and patient left ER vitally stable and ambulatory with her . Vital Signs: 19:12 BP 147 / 97; Pulse 102; Resp 18; Temp 97.9; Pulse Ox 98% on R/A; Weight 99.79 kg; la1 Height 5 ft. 6 in. (167.64 cm); 20:17 BP 133 / 82; Pulse 94; Resp 17 S; Pulse Ox 100% on R/A; cc3 21:14 BP 126 / 87; Pulse 95; Resp 17 S; Pulse Ox 100% on R/A; cc3 19:12 Body Mass Index 35.51 (99.79 kg, 167.64 cm) la1 ED Course: 18:42 Patient arrived in ED. mr 19:12 Triage completed. la1 19:12 Arm band placed on right wrist. la1 19:14 Ariana Winchester is Primary Nurse. cc3 19:15 Patient has correct armband on for positive identification. Bed in low position. Call cc3 light in reach. Side rails up X 1. Pulse ox on. NIBP on. 19:28 Gennaro Pickens NP is PHCP. pm1 19:28 Jermaine Stringer MD is Attending Physician. pm1 19:35 Inserted saline lock: 20 gauge in left antecubital area, using aseptic technique. Blood cc3 collected. 19:50 Radiology exam delayed due to lab results not completed at this time. test sg3 not completed at this time. 20:56 Ultrasound completed. Patient tolerated well. Notified REVENUE DIRECTOR/LONG feldman. sg3 20:58 US Transvaginal Ob In Process Unspecified. EDMS 21:35 No provider procedures requiring assistance completed. IV discontinued, intact, cc3 bleeding controlled, No redness/swelling at site. Pressure dressing applied. Administered Medications: No medications were administered Outcome: 21:23 Discharge ordered by MD. pm1 21:35 Discharged to home ambulatory, with family. cc3 21:35 Condition: stable 21:35 Discharge instructions given to patient, family, Instructed on discharge instructions, follow up and referral plans. Demonstrated understanding of instructions, follow-up care. 21:38 Patient left the ED. cc3 Signatures: Dispatcher [employer] [facility] Jyoti Corrales Lee RN RN la1 Gennaro Pickens NP REVENUE DIRECTOR pm1 Yumiko Castaneda sg3 Ariana Winchester cc3
== END 2018-09-02 21:38 | disposition home or self-care (01) ==
LOC: ER 18:39
DX: O20.0 Threatened abortion (principal); Z3A.01 Less than 8 weeks gestation of pregnancy
CPT/HCPCS: 36415; 76817; 80048; 81003; 81025; 84702; 85025; 86900; 86901; 99284

== ENCOUNTER 2018-09-04 19:33 | Emergency (ER) | payer BC ==
--- OUTSIDE RECORDS SUMMARY | 2018-09-04 19:35 | XMS REPORT ---
:1990 [facility] Address [address] [place] [address] Dr. Wiley [address] [place] [id number] Care Team Providers Name Role Phone Unavailable Unavailable Unavailable Problems This patient has no known problems. Allergies, Adverse Reactions, Alerts This patient has no known allergies or adverse reactions. Medications This patient has no known medications.
--- NOTE | 2018-09-04 21:17 | ER ---
Nurse's Notes [facility] Name: Olimpia Paz Age: 28 yrs Sex: Female : 1990 Arrival Date: 09/04/2018 Time: 19:35 Bed 12 Private MD: Diagnosis: Threatened Presentation: 09/04 20:02 Presenting complaint: Patient states: Here to have HCG levels rechecked after visit 2 aj days ago. Patient denies vaginal bleeding or pain. Transition of care: patient was not received from another setting of care. Onset of symptoms was September 04, 2018. Risk Assessment: Do you want to hurt yourself or someone else? Patient reports no desire to harm self or others. Initial Sepsis Screen: Does the patient meet any 2 criteria? No. Patient's initial sepsis screen is negative. Does the patient have a suspected source of infection? No. Patient's initial sepsis screen is negative. Care prior to arrival: None. 20:02 Method Of Arrival: Ambulatory aj 20:02 Acuity: ESTEFANI 4 aj Triage Assessment: 20:05 General: Appears in no apparent distress. comfortable, Behavior is calm, cooperative, aj appropriate for age. Pain: Denies pain. Neuro: Level of Consciousness is awake, alert, obeys commands, Oriented to person, place, time, situation, Appropriate for age. Respiratory: Airway is patent Respiratory effort is even, unlabored, Respiratory pattern is regular, symmetrical. Derm: Skin is intact, is healthy with good turgor, Skin is pink, warm \T\ dry. normal. 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 - Social history:: Smoking status: Patient/guardian denies using tobacco. - Ebola Screening: : Patient negative for fever greater than or equal to 101.5 degrees Fahrenheit, and additional compatible Ebola Virus Disease symptoms Patient denies exposure to infectious person Patient denies travel to an Ebola-affected area in the 21 days before illness onset No symptoms or risks identified at this time. Screenin:30 Abuse screen: Denies threats or abuse. Denies injuries from another. Nutritional aa1 screening: No deficits noted. Tuberculosis screening: No symptoms or risk factors identified. Fall Risk None identified. Assessment: 20:30 General: Appears in no apparent distress. comfortable, Behavior is calm, cooperative, aa1 appropriate for age. Pain: Denies pain. Neuro: Level of Consciousness is awake, alert, obeys commands, Oriented to person, place, time, situation. Respiratory: Airway is patent Respiratory effort is even, unlabored, Respiratory pattern is regular, symmetrical. GI: No signs and/or symptoms were reported involving the gastrointestinal system. : Denies pain vaginal bleeding. EENT: No signs and/or symptoms were reported regarding the EENT system. Derm: Skin is intact, is healthy with good turgor, Skin is pink, warm \T\ dry. Musculoskeletal: Circulation, motion, and sensation intact. Capillary refill < 3 seconds. 21:40 Reassessment: Patient appears in no apparent distress at this time. Patient is alert, aa1 oriented x 3, equal unlabored respirations, skin warm/dry/pink. Discussed d/c \T\ f/u instructions with pt \T\ spouse; denies questions or concerns at this time. Vital Signs: 20:05 BP 144 / 90; Pulse 86; Resp 20; Temp 98.6; Pulse Ox 99% on R/A; Weight 99.79 kg; Height aj 5 ft. 6 in. (167.64 cm); 21:40 BP 132 / 81; Pulse 83; Resp 16; Temp 98.5; Pulse Ox 97% on R/A; Pain 0/10; aa1 20:05 Body Mass Index 35.51 (99.79 kg, 167.64 cm) aj ED Course: 19:35 Patient arrived in ED. es 20:04 Triage completed. aj 20:05 Arm band placed on left wrist. Patient placed in an exam room. aj 20:07 Gennaro Pickens NP is PHCP. pm1 20:07 Jermaine Stringer MD is Attending Physician. pm1 20:30 Patient has correct armband on for positive identification. Bed in low position. Call aa1 light in reach. 21:40 No provider procedures requiring assistance completed. Patient did not have IV access aa1 during this emergency room visit. 21:44 Nallely Mena, RN is Primary Nurse. aa1 Administered Medications: No medications were administered Outcome: 21:16 Discharge ordered by MD. pm1 21:40 Discharged to home ambulatory, with significant other. aa1 21:40 Condition: good 21:40 Discharge instructions given to patient, significant other, Instructed on discharge instructions, follow up and referral plans. Demonstrated understanding of instructions, follow-up care. 21:44 Patient left the ED. aa1 Signatures: Nallely Mena, RN RN aa1 Valarie Cueto RN RN aj Salyer, Edna es Marinas, Patrick, NP SAFETY ADMIN ASSISTANT pm1
--- NOTE | 2018-09-04 21:17 | EDPHYS ---
Physician Documentation [facility] Name: lOimpia Paz Age: 28 yrs Sex: Female : 1990 Arrival Date: 09/04/2018 Time: 19:35 Bed 12 Private MD: ED Physician Jermaine Stringer HPI: 09/04 20:52 This 28 yrs old Female presents to ER via Ambulatory with complaints of Repeat pm1 Beta HCG. 20:52 Associated signs and symptoms: Pertinent negatives: constipation, cramping, diarrhea, pm1 dysuria, fever, nausea, vaginal bleeding, vaginal discharge, vomiting. Severity of symptoms: in the emergency department the symptoms a " 0" out of "10". The patient is sexually active, reportedly has a single partner. The patient has been recently seen at the [facility] Emergency Department, 2 days ago. Patient was seen here 2 days ago with a complaint of vagina bleeding. Patient did not have any pain at that time. Patient believes that she is 5 weeks and had 2 fertilized eggs implanted. Patient only had vaginal bleeding two days ago. No bleeding yesterday and today. Patient has not had any pain since onset of bleeding. 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 - Social history:: Smoking status: Patient/guardian denies using tobacco. - Ebola Screening: : Patient negative for fever greater than or equal to 101.5 degrees Fahrenheit, and additional compatible Ebola Virus Disease symptoms Patient denies exposure to infectious person Patient denies travel to an Ebola-affected area in the 21 days before illness onset No symptoms or risks identified at this time. ROS: 20:52 Negative for flank pain, vaginal bleeding, vaginal discharge. pm1 20:52 Constitutional: Negative for fever, chills, and weight loss, Eyes: Negative for injury, pain, redness, and discharge, ENT: Negative for injury, pain, and discharge, Neck: Negative for injury, pain, and swelling, Cardiovascular: Negative for chest pain, palpitations, and edema, Respiratory: Negative for shortness of breath, cough, wheezing, and pleuritic chest pain, Abdomen/GI: Negative for abdominal pain, nausea, vomiting, diarrhea, and constipation, Back: Negative for injury and pain, MS/Extremity: Negative for injury and deformity, Skin: Negative for injury, rash, and discoloration, Neuro: Negative for headache, weakness, numbness, tingling, and seizure. Exam: 20:52 Constitutional: This is a well developed, well nourished patient who is awake, alert, pm1 and in no acute distress. Head/Face: Normocephalic, atraumatic. Eyes: Pupils equal round and reactive to light, extra-ocular motions intact. Lids and lashes normal. Conjunctiva and sclera are non-icteric and not injected. Cornea within normal limits. Periorbital areas with no swelling, redness, or edema. ENT: Nares patent. No nasal discharge, no septal abnormalities noted. Tympanic membranes are normal and external auditory canals are clear. Oropharynx with no redness, swelling, or masses, exudates, or evidence of obstruction, uvula midline. Mucous membranes moist. Neck: Trachea midline, no thyromegaly or masses palpated, and no cervical lymphadenopathy. Supple, full range of motion without nuchal rigidity, or vertebral point tenderness. No Meningismus. Chest/axilla: Normal chest wall appearance and motion. Nontender with no deformity. No lesions are appreciated. Cardiovascular: Regular rate and rhythm with a normal S1 and S2. No gallops, murmurs, or rubs. Normal PMI, no JVD. No pulse deficits. Respiratory: Lungs have equal breath sounds bilaterally, clear to auscultation and percussion. No rales, rhonchi or wheezes noted. No increased work of breathing, no retractions or nasal flaring. Abdomen/GI: Soft, non-tender, with normal bowel sounds. No distension or tympany. No guarding or rebound. No evidence of tenderness throughout. Back: No spinal tenderness. No costovertebral tenderness. Full range of motion. Skin: Warm, dry with normal turgor. Normal color with no rashes, no lesions, and no evidence of cellulitis. MS/ Extremity: Pulses equal, no cyanosis. Neurovascular intact. Full, normal range of motion. 20:52 Neuro: Orientation: is normal, Motor: is normal, moves all fours, Gait: is steady, at a normal pace, without difficulty. Vital Signs: 20:05 BP 144 / 90; Pulse 86; Resp 20; Temp 98.6; Pulse Ox 99% on R/A; Weight 99.79 kg; Height aj 5 ft. 6 in. (167.64 cm); 21:40 BP 132 / 81; Pulse 83; Resp 16; Temp 98.5; Pulse Ox 97% on R/A; Pain 0/10; aa1 20:05 Body Mass Index 35.51 (99.79 kg, 167.64 cm) aj MDM: 20:08 Patient medically screened. pm1 21:15 Data reviewed: vital signs. Data interpreted: Pulse oximetry: on room air is 99 %. pm1 Interpretation: normal. Counseling: I had a detailed discussion with the patient and/or guardian regarding: the historical points, exam findings, and any diagnostic results supporting the discharge/admit diagnosis, lab results, the need for outpatient follow up, to return to the emergency department if symptoms worsen or persist or if there are any questions or concerns that arise at home. 21:19 ED course: Patient with 2354 Beta HCG two days ago. Repeat 48 hours later is 565. pm1 Patient without any vaginal bleeding or pain present. Vaginal bleeding stopped two days ago. Patient with likely miscarriage of both implanted fertilized eggs. She has appointment with her jewelry consultant on . 09/04 20:07 Order name: Quantitative Hcg; Complete Time: 20:52 aj Administered Medications: No medications were administered Disposition: 23:23 Co-signature as Attending Physician, Jermaine Stringer MD. pkl Disposition: 09/04/18 21:16 Discharged to Home. Impression: Threatened . - Condition is Stable. - Discharge Instructions: Threatened Miscarriage, Pelvic Rest. - Medication Reconciliation Form, Thank You Letter form. - Follow up: Emergency Department; When: As needed; Reason: Worsening of condition. Follow up: Private Physician; When: 2 - 3 days; Reason: Recheck today's complaints, Continuance of care, Re-evaluation by your physician. - Problem is new. - Symptoms have improved. Signatures: Dispatcher [employer] JIGNESHDC Nallely Mena RN RN aa1 Valarie Cueto RN RN aj Lam, Pin, MD MD pkGennaro Zaragoza, LINING PRINTER LINING PRINTER pm1 Corrections: (The following items were deleted from the chart) 21:44 21:16 09/04/2018 21:16 Discharged to Home. Impression: Threatened . Condition aa1 is Stable. Forms are Medication Reconciliation Form, Thank You Letter, Antibiotic Education, Prescription Opioid Use. Follow up: Emergency Department; When: As needed; Reason: Worsening of condition. Follow up: Private Physician; When: 2 - 3 days; Reason: Recheck today's complaints, Continuance of care, Re-evaluation by your physician. Problem is new. Symptoms have improved. pm1
== END 2018-09-04 21:44 | disposition home or self-care (01) ==
LOC: ER 19:33
DX: O20.0 Threatened abortion (principal); Z3A.01 Less than 8 weeks gestation of pregnancy
CPT/HCPCS: 36415; 84702; 99281

== ENCOUNTER 2019-02-24 11:50 | Emergency (ER) | payer BC ==
--- OUTSIDE RECORDS SUMMARY | 2019-02-24 11:53 | XMS REPORT ---
:1990 Author Organization [facility] Address [address] [place] [address] Dr. Wiley [address] [place] [id number] Care Team Providers Name Role Phone Unavailable Unavailable Unavailable Problems This patient has no known problems. Allergies, Adverse Reactions, Alerts This patient has no known allergies or adverse reactions. Medications This patient has no known medications.
[2019-02-24 13:35] LABS: Urine Blood 2+ (NEG); Urine Glucose NEGATIVE (NEG); Urine Protein TRACE (NEG); Urine Specific Gravity 1.025 (1.005-1.030); Urine pH 5.5 (5.0-7.0)
--- NOTE | 2019-02-24 14:25 | EDPHYS ---
Physician Documentation [facility] Name: Olimpia Paz Age: 28 yrs Sex: Female : 1990 Arrival Date: 02/24/2019 Time: 11:54 Bed 6 Private MD: Galileo Cabral ED Physician Dyllan Jimenez HPI: 02/24 13:16 This 28 yrs old Female presents to ER via Ambulatory with complaints of jr8 Vaginal Bleeding, + Preg <12wks. 13:16 The patient presents to the emergency department with vaginal bleeding, that is light, jr8 described as spotting. The estimated gestational age is 4 weeks. course: care: private OB physician, Leakage of Fluid: none appreciated, Ultrasound: the patient has not had an ultrasound. Associated signs and symptoms: The patient has no apparent associated signs or symptoms. The patient has experienced a previous episode. The patient has been recently seen by a physician:. Patient stated that she had IVF implantation and is 3 weeks 6 days . Stated that she saw some brown discharge this AM and one small clot past. Stated that the last time this happened she ended up having a miscarriage . 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 - Social history:: Smoking status: Patient/guardian denies using tobacco. - Ebola Screening: : No symptoms or risks identified at this time. ROS: 13:16 Eyes: Negative for injury, pain, redness, and discharge, ENT: Negative for injury, jr8 pain, and discharge, Neck: Negative for injury, pain, and swelling, Cardiovascular: Negative for chest pain, palpitations, and edema, Respiratory: Negative for shortness of breath, cough, wheezing, and pleuritic chest pain, Abdomen/GI: Negative for abdominal pain, nausea, vomiting, diarrhea, and constipation, Back: Negative for injury and pain, MS/Extremity: Negative for injury and deformity, Skin: Negative for injury, rash, and discoloration, Neuro: Negative for headache, weakness, numbness, tingling, and seizure. 13:16 : Positive for vaginal bleeding. Exam: 13:16 Eyes: Pupils equal round and reactive to light, extra-ocular motions intact. Lids and jr8 lashes normal. Conjunctiva and sclera are non-icteric and not injected. Cornea within normal limits. Periorbital areas with no swelling, redness, or edema. ENT: Nares patent. No nasal discharge, no septal abnormalities noted. Tympanic membranes are normal and external auditory canals are clear. Oropharynx with no redness, swelling, or masses, exudates, or evidence of obstruction, uvula midline. Mucous membranes moist. Neck: Trachea midline, no thyromegaly or masses palpated, and no cervical lymphadenopathy. Supple, full range of motion without nuchal rigidity, or vertebral point tenderness. No Meningismus. Cardiovascular: Regular rate and rhythm with a normal S1 and S2. No gallops, murmurs, or rubs. Normal PMI, no JVD. No pulse deficits. Respiratory: Lungs have equal breath sounds bilaterally, clear to auscultation and percussion. No rales, rhonchi or wheezes noted. No increased work of breathing, no retractions or nasal flaring. Abdomen/GI: Soft, non-tender, with normal bowel sounds. No distension or tympany. No guarding or rebound. No evidence of tenderness throughout. Back: No spinal tenderness. No costovertebral tenderness. Full range of motion. Skin: Warm, dry with normal turgor. Normal color with no rashes, no lesions, and no evidence of cellulitis. MS/ Extremity: Pulses equal, no cyanosis. Neurovascular intact. Full, normal range of motion. Neuro: Awake and alert, GCS 15, oriented to person, place, time, and situation. Cranial nerves II-XII grossly intact. Motor strength 5/5 in all extremities. Sensory grossly intact. Cerebellar exam normal. Normal gait. Vital Signs: 13:02 BP 132 / 78; Pulse 80; Resp 16; Temp 98.1; Pulse Ox 100% on R/A; Weight 100.24 kg; hb Height 5 ft. 6 in. (167.64 cm); Pain 0/10; 14:00 BP 128 / 76; Pulse 78; Resp 15; Pulse Ox 100% on R/A; Pain 0/10; hb 13:02 Body Mass Index 35.67 (100.24 kg, 167.64 cm) hb MDM: 12:30 Patient medically screened. jr8 14:24 Data reviewed: vital signs, nurses notes, lab test result(s), and as a result, I will jr8 discharge patient. Data interpreted: Pulse oximetry: on room air is 100 %. Interpretation: normal. Counseling: I had a detailed discussion with the patient and/or guardian regarding: the historical points, exam findings, and any diagnostic results supporting the discharge/admit diagnosis, lab results, the need for outpatient follow up, an OB/Gyne specialist, to return to the emergency department if symptoms worsen or persist or if there are any questions or concerns that arise at home. 02/24 12:59 Order name: Abo/rh Typing; Complete Time: 14:24 [facility] 02/24 12:59 Order name: HCG-Quantitative; Complete Time: 14:04 [facility] 02/24 12:59 Order name: Urine Test (obtain specimen); Complete Time: 13:25 [facility] 02/24 12:59 Order name: Urine Dipstick-Ancillary (obtain specimen); Complete Time: 13:25 [facility] 02/24 13:20 Order name: Urine Dipstick--Ancillary (enter results); Complete Time: 13:46 bd 02/24 13:20 Order name: Urine --Ancillary (enter results); Complete Time: 13:46 bd Administered Medications: No medications were administered Disposition: 15:23 Co-signature as Attending Physician, Dyllan Jimenez MD. Disposition: 02/24/19 14:25 Discharged to Home. Impression: Threatened . - Condition is Stable. - Discharge Instructions: Threatened Miscarriage, Vaginal Bleeding During , First Trimester, Pelvic Rest. - Medication Reconciliation Form, Thank You Letter, Antibiotic Education, Prescription Opioid Use form. - Follow up: Private Physician; When: 2 - 3 days; Reason: Recheck today's complaints, Continuance of care, Re-evaluation by your physician. - Problem is new. - Symptoms have improved. Signatures: Dispatcher [employer] EDBill Corcoran PA PA jr8 Babs Chaney RN RN Dyllan Piper MD MD Corrections: (The following items were deleted from the chart) 14:34 14:25 02/24/2019 14:25 Discharged to Home. Impression: Threatened . Condition hb is Stable. Forms are Medication Reconciliation Form, Thank You Letter, Antibiotic Education, Prescription Opioid Use. Follow up: Private Physician; When: 2 - 3 days; Reason: Recheck today's complaints, Continuance of care, Re-evaluation by your physician. Problem is new. Symptoms have improved. jr8
--- NOTE | 2019-02-24 14:25 | ER ---
Nurse's Notes [facility] Name: Olimpia Paz Age: 28 yrs Sex: Female : 1990 Arrival Date: 02/24/2019 Time: 11:54 Bed 6 Private MD: Galileo Cabral Diagnosis: Threatened Presentation: 02/24 12:35 Presenting complaint: Brownish discharge with one small clot and intermittent lower hb abdominal cramping since this morning. Pt reports she is approx 4 weeks , est due date 11/04. 12:35 Transition of care: patient was not received from another setting of care. Onset of hb symptoms was February 24, 2019. Risk Assessment: Do you want to hurt yourself or someone else? Patient reports no desire to harm self or others. Initial Sepsis Screen: Does the patient meet any 2 criteria? No. Patient's initial sepsis screen is negative. Does the patient have a suspected source of infection? No. Patient's initial sepsis screen is negative. Care prior to arrival: None. 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 - Social history:: Smoking status: Patient/guardian denies using tobacco. - Ebola Screening: : No symptoms or risks identified at this time. Screenin:00 Abuse screen: Denies threats or abuse. Denies injuries from another. Nutritional hb screening: No deficits noted. Tuberculosis screening: No symptoms or risk factors identified. Fall Risk None identified. Assessment: 13:00 General: Appears in no apparent distress. Behavior is calm, cooperative. Pain: Denies hb pain. Neuro: Level of Consciousness is awake, alert, obeys commands, Oriented to person, place, time, situation. Cardiovascular: Capillary refill < 3 seconds Patient's skin is warm and dry. Respiratory: Airway is patent Respiratory effort is even, unlabored, Respiratory pattern is regular, symmetrical. GI: No signs and/or symptoms were reported involving the gastrointestinal system. : No signs and/or symptoms were reported regarding the genitourinary system. EENT: No signs and/or symptoms were reported regarding the EENT system. Derm: Skin is intact, is healthy with good turgor, Skin is pink, warm \T\ dry. Musculoskeletal: No signs and/or symptoms reported regarding the musculoskeletal system. 14:00 Reassessment: Patient appears in no apparent distress at this time. Patient and/or hb family updated on plan of care and expected duration. Pain level reassessed. Patient is alert, oriented x 3, equal unlabored respirations, skin warm/dry/pink. Vital Signs: 13:02 BP 132 / 78; Pulse 80; Resp 16; Temp 98.1; Pulse Ox 100% on R/A; Weight 100.24 kg; hb Height 5 ft. 6 in. (167.64 cm); Pain 0/10; 14:00 BP 128 / 76; Pulse 78; Resp 15; Pulse Ox 100% on R/A; Pain 0/10; hb 13:02 Body Mass Index 35.67 (100.24 kg, 167.64 cm) hb ED Course: 11:54 Patient arrived in ED. as 11:54 Galileo Cabral MD is Private Physician. as 12:18 [facility] jr8 12:18 Dyllan Jimenez MD is Attending Physician. jr8 12:38 Babs Chaney, WAYLON is Primary Nurse. hb 13:02 Triage completed. hb 13:04 Arm band placed on. hb 13:25 Abo/rh Typing Sent. hb 13:25 HCG-Quantitative Sent. hb 13:25 Urine Dipstick--Ancillary (enter results) Sent. hb 13:26 Urine --Ancillary (enter results) Sent. hb 13:27 Patient has correct armband on for positive identification. Bed in low position. Call light in reach. 14:33 No provider procedures requiring assistance completed. Patient did not have IV access hb during this emergency room visit. Administered Medications: No medications were administered Outcome: 14:25 Discharge ordered by . jr8 14:33 Discharged to home ambulatory, with family. hb 14:33 Condition: stable 14:33 Discharge instructions given to patient, Instructed on discharge instructions, follow up and referral plans. Demonstrated understanding of instructions, follow-up care. 14:34 Patient left the ED. hb Signatures: Tran Arambula Josh, PA PA jr8 Babs Chaney, RN RN hb
== END 2019-02-24 14:34 | disposition home or self-care (01) ==
LOC: ER 11:50
DX: O20.0 Threatened abortion (principal); Z3A.01 Less than 8 weeks gestation of pregnancy
CPT/HCPCS: 36415; 81003; 81025; 84702; 86900; 86901; 99283

== ENCOUNTER 2019-03-14 23:47 | Emergency (ER) | payer BC ==
--- OUTSIDE RECORDS SUMMARY | 2019-03-14 23:50 | XMS REPORT | Clinical Summary ---
:1990 Author Organization [facility] Address [address] [place] [address] Care Team Providers Name Role Phone Asked, No Pcp Primary Care Provider Unavailable Allergies No Known Allergies Medications Medication Sig Dispensed Refills Start Date End Date Status doxylamine-pyridoxin Take 2 tablets 30 tablet 0 03/03/2019 03/18/2019 Active e, vit B6, by mouth daily (DICLEGIS) 10-10 mg for 15 days. tablet,delayed release (DR/EC) delayed release tablet nitrofurantoin, Take 1 capsule 14 capsule 0 03/03/2019 03/10/2019 macrocrystal-monohyd (100 mg total) rate, (MACROBID) 100 by mouth 2 (two) MG capsule times a day for 7 days. promethazine Take 1 tablet 15 tablet 0 03/03/2019 03/10/2019 (PHENERGAN) 25 MG (25 mg total) by tablet mouth every 6 (six) hours as needed for nausea or vomiting for up to 7 days. Active Problems Not on file Encounters Date Type Specialty Care Team Description 03/11/2019 Telephone Obstetrics and Telma Sainz I. Gynecology 03/02/2019 - Emergency Emergency Medicine Jake Martinez Nausea vomiting and diarrhea (Primary Dx); 03/03/2019 MD Marshal Asymptomatic bacteriuria during after 03/13/2018 Social History Tobacco Use Types Packs/Day Years Used Date Never Smoker Smokeless Tobacco: Never Used Alcohol Use Drinks/Week oz/Week Comments Not Currently Sex Assigned at Date Recorded Not on file Job Start Date Occupation Industry Not on file Not on file Not on file Travel History Travel Start Travel End No recent travel history available. Last Filed Vital Signs Vital Sign Reading Time Taken Blood Pressure 135/83 03/03/2019 12:45 AM CDT Pulse 97 03/02/2019 8:01 PM CDT Temperature 36.9 C (98.5 F) 03/02/2019 8:01 PM CDT Respiratory Rate 16 03/02/2019 8:01 PM CDT Oxygen Saturation 99% 03/02/2019 8:01 PM CDT Inhaled Oxygen Concentration - - Weight - - Height 167.6 cm (5' 6") 03/02/2019 7:55 PM CDT Body Mass Index - - Plan of Treatment Health Maintenance Due Date Last Done Comments INFLUENZA VACCINE 04/11/2019 Procedures Procedure Name Priority Date/Time Associated Comments Diagnosis US STAT 03/02/2019 10:14 Results for this TRANSVAGINAL PM CDT procedure are in the results section. US SINGLE STAT 03/02/2019 10:14 Results for this LESS THAN 14 WEEKS PM CDT procedure are in the results section. GRAM STAIN STAT 03/02/2019 9:43 Results for this PM CDT procedure are in the results section. URINE CULTURE STAT 03/02/2019 9:43 Results for this PM CDT procedure are in the results section. HCG QUANTITATIVE, STAT 03/02/2019 9:13 Results for this SERUM PM CDT procedure are in the results section. ESTIMATED GFR STAT 03/02/2019 9:13 Results for this PM CDT procedure are in the results section. URINALYSIS SCREEN AND STAT 03/02/2019 9:13 Results for this MICROSCOPY, WITH PM CDT procedure are in REFLEX TO CULTURE the results section. COMPREHENSIVE STAT 03/02/2019 9:13 Results for this METABOLIC PANEL PM CDT procedure are in the results section. HC COMPLETE BLD COUNT STAT 03/02/2019 9:13 Results for this W/AUTO DIFF PM CDT procedure are in the results section. after 03/13/2018 Results US Transvaginal (03/02/2019 10:14 PM CDT) Specimen Narrative Performed At EXAM: US TRANSVAGINAL [facility] CLINICAL INDICATIONS:Abd pain IVF in [place] 4wks ago r o ectopic TECHNIQUE: Pelvic ultrasound performed.Transabdominal and transvaginal images are obtained. COMPARISON: None. IMPRESSION: A cystic structure possibly representing gestational sac of early is identified within the endometrial cavity lower uterine segment. Yolk sac and pole are not identified at this time. Findings are not definitive for an intrauterine . Recommend follow-up as clinically indicated. By ultrasonographic dating criteria, is at 5 weeks 2 days (by presumed mean sac diameter). Presumed gestational sac size is 0.67 cm. Uterus measures 8.6 x 5.4 x 7.3 cm. Right and left ovaries are within normal limits, with normal Doppler flow. Right ovary measures 3.9 x 2.4 x 2.3 cm and left ovary measures 3.7 x 2.8 x 2.2 cm. Trace free pelvic fluid may be physiologic. [id number] Procedure Note Interface, Radiology Results - 03/02/2019 10:51 PM CDT EXAM: US TRANSVAGINAL CLINICAL INDICATIONS: Abd pain IVF in [place] 4wks ago r o ectopic TECHNIQUE: Pelvic ultrasound performed. Transabdominal and transvaginal images are obtained. COMPARISON: None. IMPRESSION: A cystic structure possibly representing gestational sac of early is identified within the endometrial cavity lower uterine segment. Yolk sac and pole are not identified at this time. Findings are not definitive for an intrauterine . Recommend follow-up as clinically indicated. By ultrasonographic dating criteria, is at 5 weeks 2 days (by presumed mean sac diameter). Presumed gestational sac size is 0.67 cm. Uterus measures 8.6 x 5.4 x 7.3 cm. Right and left ovaries are within normal limits, with normal Doppler flow. Right ovary measures 3.9 x 2.4 x 2.3 cm and left ovary measures 3.7 x 2.8 x 2.2 cm. Trace free pelvic fluid may be physiologic. [facility]-[id number] Performing Organization Address City/State/Zipcode Phone Number [facility] [address] [place] [address] US Single Less Than 14 Weeks (03/02/2019 10:14 PM CDT) Specimen Narrative Performed At EXAM: US SINGLE LESS THAN 14 WEEKS [facility]:Abd pain IVF in [place] 4wks ago r o ectopic TECHNIQUE: Pelvic ultrasound performed.Transabdominal and transvaginal images are obtained. COMPARISON: None. IMPRESSION: A cystic structure possibly representing gestational sac of early is identified within the endometrial cavity lower uterine segment. Yolk sac and pole are not identified at this time. Findings are not definitive for an intrauterine . Recommend follow-up as clinically indicated. By ultrasonographic dating criteria, is at 5 weeks 2 days (by presumed mean sac diameter). Presumed gestational sac size is 0.67 cm. Uterus measures 8.6 x 5.4 x 7.3 cm. Right and left ovaries are within normal limits, with normal Doppler flow. Right ovary measures 3.9 x 2.4 x 2.3 cm and left ovary measures 3.7 x 2.8 x 2.2 cm. Trace free pelvic fluid may be physiologic. [id number] Procedure Note Hm Interface, Radiology Results Incoming - 03/02/2019 10:47 PM CDT EXAM: US SINGLE LESS THAN 14 WEEKS CLINICAL INDICATIONS: Abd pain IVF in [place] 4wks ago r o ectopic TECHNIQUE: Pelvic ultrasound performed. Transabdominal and transvaginal images are obtained. COMPARISON: None. IMPRESSION: A cystic structure possibly representing gestational sac of early is identified within the endometrial cavity lower uterine segment. Yolk sac and pole are not identified at this time. Findings are not definitive for an intrauterine . Recommend follow-up as clinically indicated. By ultrasonographic dating criteria, is at 5 weeks 2 days (by presumed mean sac diameter). Presumed gestational sac size is 0.67 cm. Uterus measures 8.6 x 5.4 x 7.3 cm. Right and left ovaries are within normal limits, with normal Doppler flow. Right ovary measures 3.9 x 2.4 x 2.3 cm and left ovary measures 3.7 x 2.8 x 2.2 cm. Trace free pelvic fluid may be physiologic. [id number] Performing Organization Address [facility] Cent[facility]ode Phone [facility] [address] [place] [address] Gram stain (03/02/2019 9:43 PM CDT) Gram stain result No WBC's [facility] Few Gram positive rods HOSPITAL Comment: Specimen Information Specimen Source: Urine Specimen Site: Clean catch Specimen Urine Performing Organization Address City/[facility]/Zipcode Phone Number [facility] DEPARTMENT OF PATHOLOGY AND [address] [place] [address] [facility] [address] [address] Urine culture (03/02/2019 9:43 PM CDT) Urine culture Mixed ortiz 10-4 col/cc [facility] isolate Comment: HOSPITAL Specimen Information Specimen Source: Urine Specimen Site: Clean catch Specimen Urine Performing Organization Address [facility] Cent[facility]ode Phone Number [facility] DEPARTMENT OF PATHOLOGY AND [address] [place] [phone] [address] Urinalysis screen and microscopy, with reflex to culture (03/02/2019 9:13 PM CDT) Specimen site Clean catch [facility] Color, UA Yellow [facility] Appearance, UA Clear [facility] Specific gravity, UA 1.026 1.001 - 1.035 [facility] pH, UA 5.0 5.0 - 8.5 [facility] Protein, UA Negative Negative [facility] Glucose, UA Negative Negative [facility] Ketones, UA Negative Negative [facility] Bilirubin, UA Negative Negative [facility] Blood, UA Small (A) Negative [facility] Nitrite, UA Negative Negative [facility] Urobilinogen, UA <2.0 <2.0 [facility] Leukocyte esterase, Negative Negative [facility] Epithelial cells, UA 10 /HPF [facility] WBC, UA 1 0 - 4 /HPF [facility] RBC, UA 18 (H) 0 - 5 /HPF [facility] Bacteria, UA Moderate (A) None seen [facility] Yeast, UA None seen [facility] Yeast with None seen [facility] pseudohyphae, [facility] Specimen Urine Performing Organization Address City/[facility] Cent[facility]ode Phone Number [facility] DEPARTMENT OF PATHOLOGY AND [address] [place] [phone] Estimated GFR (03/02/2019 9:13 PM CDT) [facility] Estimated GFR >=90 mL/min/1.73 [facility] Comment: m2 HOSPITAL CatergoryUnitsInterpretation G1 >=90 Normal or high G2 60-89Mildly decreased [id number] to moderately decreased [id number] to severely decreased G4 15-29Severely decreased G5 <15Kidney failure The eGFR was calculated using the Chronic Kidney Disease Epidemiology Collaboration (CKD-EPI) equation. Interpretation is based on recommendations of the National Kidney Foundation-Kidney Disease Outcomes Quality Initiative (NKF-KDOQI) published in 2014. Specimen Plasma specimen Performing Organization Address City/State/Zipcode Phone Number [facility] DEPARTMENT OF PATHOLOGY AND [address] [place] [phone] [address] CBC with platelet and differential (03/02/2019 9:13 PM CDT) WBC 10.54 4.50 - 11.00 [facility] k/uL HOSPITAL RBC 4.39 4.20 - 5.50 [facility] m/uL HOSPITAL HGB 13.1 12.0 - 16.0 [facility] g/dL HOSPITAL HCT 40.1 37.0 - 47.0 % [facility] MCV 91.3 82.0 - 100.0 [facility] MCH 29.8 27.0 - 34.0 pg [facility] MCHC 32.7 31.0 - 37.0 [facility] gdL [facility] RDW - SD 42.4 37.0 - 55.0 fL [facility] MPV 9.7 8.8 - 13.2 fL [facility] Platelet count 257 150 - 400 k/uL [facility] Nucleated RBC 0.00 /100 WBC [facility] Neutrophils 69.7 (H) 39.0 - 69.0 % [facility] Lymphocytes 21.2 (L) 25.0 - 45.0 % [facility] Monocytes 7.6 0.0 - 10.0 % [facility] Eosinophils 0.9 0.0 - 5.0 % [facility] Basophils 0.3 0.0 - 1.0 % [facility] Immature granulocytes 0.3Comment: 0.0 - 1.0 % [facility] "Immature HOSPITAL granulocytes" (promyelocytes , myelocytes, metamyelocytes ) Specimen Blood Performing Organization Address City/[facility]/Zipcode Phone Number [facility] DEPARTMENT OF PATHOLOGY AND [address] [place] [phone] [address] hCG quantitative, serum (03/02/2019 9:13 PM CDT) hCG quantitative, 282 (H) 0 - 5 mIU/mL [facility] serum Comment: HOSPITAL Reference range for HCG Quant applies to males and non- females. Post Menopausal 0.0 - 8.1 mIU/mL Specimen Plasma specimen Performing Organization Address City/[facility]/Zipcode Phone Number [facility] DEPARTMENT OF PATHOLOGY AND [address] [place] [address] [place] [address] [address] Comprehensive metabolic panel (03/02/2019 9:13 PM CDT) Sodium 140 135 - 148 [facility] mEq/L [facility] Potassium 4.2 3.5 - 5.0 [facility] mEq/L [facility] Chloride 105 98 - 112 mEq/L [facility] CO2 20 (L) 24 - 31 mEq/L [facility] Anion gap 15@ANIO 7 - 15 mEq/L [facility] BUN 10 6 - 20 mg/dL [facility] Creatinine 0.80 0.50 - 0.90 [facility] mg/dL [facility] Glucose 127 (H) 65 - 99 mg/dL [facility] Calcium 9.2 8.3 - 10.2 [facility] mg/dL [facility] Protein 7.7 6.3 - 8.3 g/dL [facility] Comment: HOSPITAL [place] 4.6-7.0 g/dL 1 week 4.4-7.6 g/dL 7 months-1year5.1-7.3 g/dL 1-2 years5.6-7.5 g/dL >3 years6.0-8.0 g/dL 18-150 6.3-8.3 g/dL Albumin 3.3 (L) 3.5 - 5.0 g/dL [facility] A/G ratio 0.8 0.7 - 3.8 [facility] Alkaline phosphatase 64 35 - 104 U/L [facility] AST 19 10 - 35 U/L [facility] ALT 26 5 - 50 U/L [facility] Total bilirubin <0.2 0.0 - 1.2 [facility] mg/dL [facility] Specimen Plasma specimen Performing Organization Address City/State/Zipcode Phone Number [facility] DEPARTMENT OF PATHOLOGY AND [address] [place] [address] [address] after 03/13/2018 Advance Directives Patient has advance care planning documents on file. For more information, please contact:Arturo Arias[address] [place] [address]
--- OUTSIDE RECORDS SUMMARY | 2019-03-14 23:50 | XMS REPORT ---
:1990 Author [facility] Address [address] [place] [address] Dr. Wiley [address] [place] [address] Care Team Providers Name Role Phone Unavailable Unavailable Unavailable Problems This patient has no known problems. Allergies, Adverse Reactions, Alerts This patient has no known allergies or adverse reactions. Medications This patient has no known medications.
[2019-03-15 00:51] LABS: Specific Gravity 1.025 (1.005-1.030); Urine Appearance TURBID; Urine Blood 3+ (NEG); Urine Color RED; Urine Glucose NEGATIVE (NEG); Urine Protein 2+ (NEG); Urine Specific Gravity 1.025 (1.005-1.030)
[2019-03-15 00:54] LABS: Absolute Lymphocytes (CBC) 2.5 K/uL (0.7-4.9); Basophils % 1.3 % (0-1.3); Eosinophils % 1.1 % (0-4.4); Hematocrit 40.9 % (36.0-45.0); MPV 8.8 fL (7.6-11.3); Monocytes % 6.4 % (3.3-12.3); RBC Red Blood Cell Count 4.52 M/uL (3.86-4.86)
[2019-03-15 00:55] LABS: Urine Bilirubin NEGATIVE (NEG); Urine Microscopic Reflex ORDER UMIC
[2019-03-15 01:01] LABS: Urine Bacteria 20-50 /HPF (<20); Urine Culture Reflex Order REFLEXED; Urine RBC TNTC /HPF (NONE SEEN)
[2019-03-15 01:15] LABS: Potassium 4.3 mmol/L (3.5-5.1)
[2019-03-15] MEDS ORDERED: FENTANYL CITR 100 MCG/2 ML ONE (02:09)
--- NOTE | 2019-03-15 04:28 | ER ---
Nurse's Notes [facility] Name: Olimpia Paz Age: 28 yrs Sex: Female : 1990 Arrival Date: 03/14/2019 Time: 23:51 Bed 6 Private MD: Galileo Cabral Diagnosis: Incomplete spontaneous without complication Presentation: 03/15 00:00 Presenting complaint: Patient states: she went to restrm had bright red blood on ak1 toilet paper at 2327. pt 3rd , no living children. pt stated this was IVF. pt registered nurse bone marrow transplant is at [facility]. Transition of care: patient was not received from another setting of care. Onset of symptoms was March 15, 2019. Risk Assessment: Do you want to hurt yourself or someone else? Patient reports no desire to harm self or others. Initial Sepsis Screen: Does the patient meet any 2 criteria? No. Patient's initial sepsis screen is negative. Does the patient have a suspected source of infection? No. Patient's initial sepsis screen is negative. Care prior to arrival: None. 00:00 Acuity: ESTEFANI 3 ak1 00:00 Method Of Arrival: Ambulatory ak1 Triage Assessment: 00:04 General: Appears in no apparent distress. Behavior is anxious, crying. Pain: Denies ak1 pain. [address]: 03/14 23:59 3, Full Term 0, Living 0, LMP 01/21/2019, Verified, EDC 10/28/2019, ak1 Gestational age from LMP: 7 weeks 4 days Historical: - Allergies: 03/15 00:04 No Known Allergies; ak1 - Home Meds: 00:04 estradiol 2 mg oral tab 6 tabs once daily [Active]; Folic Acid Oral [Active]; ak1 Vitamin Oral [Active]; progesterone micronized 200 mg oral cap 4 caps once daily [Active]; progesterone intramuscular intramuscular [Active]; Albuterol Inhl [Active]; - PMHx: 00:04 Asthma; ak1 - PSHx: 00:04 left hand sx; ak1 - Immunization history:: Adult Immunizations unknown. - Social history:: Smoking status: Patient/guardian denies using tobacco. - Ebola Screening: : No symptoms or risks identified at this time. Screenin:04 Abuse screen: Denies threats or abuse. Denies injuries from another. Nutritional ak1 screening: No deficits noted. Tuberculosis screening: No symptoms or risk factors identified. Fall Risk None identified. Assessment: 00:12 General: Appears in no apparent distress. comfortable, Behavior is cooperative, crying. rv Pain: Denies pain. Neuro: Level of Consciousness is awake, alert, obeys commands, Oriented to person, place, time, situation. Cardiovascular: Patient's skin is warm and dry. Respiratory: Airway is patent. GI: No signs and/or symptoms were reported involving the gastrointestinal system. : Reports vaginal bleeding that is bright red. EENT: No signs and/or symptoms were reported regarding the EENT system. Derm: Skin is intact. Musculoskeletal: No signs and/or symptoms reported regarding the musculoskeletal system. 04:26 Reassessment: Patient appears in no apparent distress at this time. Patient is alert, ak1 oriented x 3, equal unlabored respirations, skin warm/dry/pink. pt tolerated pelvic exam well. POC walked to lab. pt asked to go to restroom to clean herself. pt ambulated with steady gait to ER restroom with purple wipes and sanitary pads. 04:58 Reassessment: Patient appears in no apparent distress at this time. Patient and/or ak1 family updated on plan of care and expected duration. Pain level reassessed. Patient is alert, oriented x 3, equal unlabored respirations, skin warm/dry/pink. pt with steady gait at discharge. pt verbalized understanding to follow up with her DEPUTY COURT and to return to ER if needed. pt left with family. Vital Signs: 03/14 23:59 BP 165 / 132; Pulse 101; Resp 18; Temp 99.4(TE); Pulse Ox 100% on R/A; Weight 120.2 kg ak1 (R); Height 5 ft. 6 in. (167.64 cm) (R); Pain 0/10; 03/15 01:00 BP 118 / 70; Pulse 83; Resp 18; Pulse Ox 99% ; rv 04:28 BP 115 / 71; Pulse 92; Resp 18; Temp 98.1(TE); Pulse Ox 98% on R/A; ak1 04:46 BP 115 / 83; Pulse 90; Resp 18; Temp 98.1; Pulse Ox 100% on R/A; ak1 03/14 23:59 Body Mass Index 42.77 (120.20 kg, 167.64 cm) ak1 ED Course: 03/14 23:51 Patient arrived in ED. es 23:51 Galileo Cabral MD is Private Physician. es 23:54 Pastor Bland, WAYLON is Primary Nurse. rv 03/15 00:01 Dyllan Jimenez MD is Attending Physician. gs 00:02 Triage completed. ak1 00:04 Arm band placed on Patient placed in an exam room, on a stretcher, on pulse oximetry, ak1 Patient notified of wait time. 00:04 Patient has correct armband on for positive identification. Bed in low position. Call ak1 light in reach. Side rails up X 1. Adult w/ patient. Pulse ox on. NIBP on. 00:46 Inserted saline lock: 20 gauge in right antecubital area, using aseptic technique. ea Blood collected. 03:11 Transvaginal OB In Process Unspecified. EDMS 04:23 Assist provider with pelvic exam: Set up pelvic tray. Performed by Dyllan Jimenez MD ak1 Specimens sent to lab. POC sent to pathology, Patient tolerated well. 04:27 Francisco London MD is Referral Physician. gs 04:57 IV discontinued, intact, bleeding controlled, No redness/swelling at site. Pressure ak1 dressing applied. Administered Medications: 02:09 Drug: fentaNYL (PF) 50 mcg Route: IVP; Site: right antecubital; ea 02:15 Follow up: Response: No adverse reaction; Pain is decreased ea 03:45 Drug: fentaNYL (PF) 50 mcg Route: IVP; Site: right antecubital; ea 04:36 Follow up: Response: No adverse reaction; Pain is unchanged, physician notified ak1 04:51 Drug: METHERgine 0.2 mg Route: IM; Site: left gluteus; ak1 04:51 Follow up: Response: No adverse reaction; Medication administered at discharge. ak1 Outcome: 04:27 Discharge ordered by . gs 04:35 Condition: stable ak1 04:57 Discharged to home ambulatory, with family. ak1 04:57 Discharge instructions given to patient, family, Instructed on discharge instructions, follow up and referral plans. no drinking with medication, no driving heavy equipment, medication usage, Demonstrated understanding of instructions, follow-up care, medications, Prescriptions given X 2. 04:59 Patient left the ED. ak1 Signatures: Dispatcher [employer] Rupali Chavez Amber, RN RN ak1 Mariely Evans RN RN ea Starr, Gregory, MD MD Pastor Bland RN RN rv
--- NOTE | 2019-03-15 04:28 | EDPHYS ---
Physician Documentation [facility] Name: Olimpia Paz Age: 28 yrs Sex: Female : 1990 Arrival Date: 03/14/2019 Time: 23:51 Bed 6 Private MD: Galileo Cabral ED Physician Dyllan Jimenez HPI: 03/15 04:24 This 28 yrs old Female presents to ER via Ambulatory with complaints of gs Possible misscarriage. 04:24 The patient presents with vaginal bleeding that is heavy. Onset: The symptoms/episode gs began/occurred this morning. Modifying factors: The symptoms are alleviated by nothing, the symptoms are aggravated by nothing. Associated signs and symptoms: Pertinent positives: cramping, Pertinent negatives: fever. Severity of symptoms: At their worst the symptoms were severe, in the emergency department the symptoms are unchanged. The patient has experienced similar episodes in the past. The patient has not recently seen a physician. [employer]: 03/14 23:59 3, Full Term 0, Living 0, LMP 01/21/2019, Verified, EDC 10/28/2019, ak1 Gestational age from LMP: 7 weeks 4 days Historical: - Allergies: 03/15 00:04 No Known Allergies; ak1 - Home Meds: 00:04 estradiol 2 mg oral tab 6 tabs once daily [Active]; Folic Acid Oral [Active]; ak1 Vitamin Oral [Active]; progesterone micronized 200 mg oral cap 4 caps once daily [Active]; progesterone intramuscular intramuscular [Active]; Albuterol Inhl [Active]; - PMHx: 00:04 Asthma; ak1 - PSHx: 00:04 left hand sx; ak1 - Immunization history:: Adult Immunizations unknown. - Social history:: Smoking status: Patient/guardian denies using tobacco. - Ebola Screening: : No symptoms or risks identified at this time. ROS: 04:24 All other systems are negative. gs Exam: 04:24 Head/Face: Normocephalic, atraumatic. Eyes: Pupils equal round and reactive to light, gs extra-ocular motions intact. Lids and lashes normal. Conjunctiva and sclera are non-icteric and not injected. Cornea within normal limits. Periorbital areas with no swelling, redness, or edema. ENT: Nares patent. No nasal discharge, no septal abnormalities noted. Tympanic membranes are normal and external auditory canals are clear. Oropharynx with no redness, swelling, or masses, exudates, or evidence of obstruction, uvula midline. Mucous membranes moist. Neck: Trachea midline, no thyromegaly or masses palpated, and no cervical lymphadenopathy. Supple, full range of motion without nuchal rigidity, or vertebral point tenderness. No Meningismus. Chest/axilla: Normal chest wall appearance and motion. Nontender with no deformity. No lesions are appreciated. Cardiovascular: Regular rate and rhythm with a normal S1 and S2. No gallops, murmurs, or rubs. Normal PMI, no JVD. No pulse deficits. Respiratory: Lungs have equal breath sounds bilaterally, clear to auscultation and percussion. No rales, rhonchi or wheezes noted. No increased work of breathing, no retractions or nasal flaring. Back: No spinal tenderness. No costovertebral tenderness. Full range of motion. Skin: Warm, dry with normal turgor. Normal color with no rashes, no lesions, and no evidence of cellulitis. MS/ Extremity: Pulses equal, no cyanosis. Neurovascular intact. Full, normal range of motion. Neuro: Awake and alert, GCS 15, oriented to person, place, time, and situation. Cranial nerves II-XII grossly intact. Motor strength 5/5 in all extremities. Sensory grossly intact. Cerebellar exam normal. Normal gait. 04:24 Constitutional: The patient appears alert, awake, uncomfortable. 04:24 Abdomen/GI: Palpation: mild abdominal tenderness, in the suprapubic area, right lower quadrant and left lower quadrant, rebound tenderness, is not appreciated. 04:24 : Pelvic Exam: External exam: is normal, Speculum exam: mild bleeding, os that is open, tissue in cervix is seen, bimanual exam reveals os that is open. Vital Signs: 03/14 23:59 BP 165 / 132; Pulse 101; Resp 18; Temp 99.4(TE); Pulse Ox 100% on R/A; Weight 120.2 kg ak1 (R); Height 5 ft. 6 in. (167.64 cm) (R); Pain 0/10; 03/15 01:00 BP 118 / 70; Pulse 83; Resp 18; Pulse Ox 99% ; rv 04:28 BP 115 / 71; Pulse 92; Resp 18; Temp 98.1(TE); Pulse Ox 98% on R/A; ak1 04:46 BP 115 / 83; Pulse 90; Resp 18; Temp 98.1; Pulse Ox 100% on R/A; ak1 03/14 23:59 Body Mass Index 42.77 (120.20 kg, 167.64 cm) ak1 MDM: 00:32 Patient medically screened. 04:24 Differential diagnosis: ectopic , complete Ab, retained Ab, missed Ab. Data gs reviewed: vital signs, nurses notes. Counseling: I had a detailed discussion with the patient and/or guardian regarding: the historical points, exam findings, and any diagnostic results supporting the discharge/admit diagnosis, the need for outpatient follow up, an OB/Gyne specialist. Response to treatment: the patient's symptoms have markedly improved after treatment, and as a result, I will discharge patient. 03/15 00:32 Order name: Quantitative Hcg 03/15 00:32 Order name: Abo/rh Typing; Complete Time: 01:32 03/15 00:32 Order name: Basic Metabolic Panel; Complete Time: 01:32 03/15 00:32 Order name: CBC with Diff; Complete Time: 01:32 03/15 00:33 Order name: HCG, Quantitative; Complete Time: 01:32 EDTX 03/15 00:48 Order name: Test, Urine; Complete Time: 01:32 EDTX 03/15 00:48 Order name: Urinalysis; Complete Time: 01:32 EDTX 03/15 00:56 Order name: Urine Microscopic Only; Complete Time: 01:32 EDTX 03/15 01:03 Order name: Urine Culture EDTX 03/15 03:01 Order name: Transvaginal OB EDTX 03/15 00:32 Order name: Urine Test (obtain specimen); Complete Time: 00:46 03/15 00:32 Order name: IV Saline Lock; Complete Time: 00:46 03/15 00:32 Order name: Labs collected and sent; Complete Time: 00:46 03/15 00:32 Order name: NPO; Complete Time: 00:47 03/15 00:32 Order name: Urine Dipstick-Ancillary (obtain specimen); Complete Time: 00:47 gs Administered Medications: 02:09 Drug: fentaNYL (PF) 50 mcg Route: IVP; Site: right antecubital; ea 02:15 Follow up: Response: No adverse reaction; Pain is decreased ea 03:45 Drug: fentaNYL (PF) 50 mcg Route: IVP; Site: right antecubital; ea 04:36 Follow up: Response: No adverse reaction; Pain is unchanged, physician notified ak1 04:51 Drug: METHERgine 0.2 mg Route: IM; Site: left gluteus; ak1 04:51 Follow up: Response: No adverse reaction; Medication administered at discharge. ak1 Disposition: 03/15/19 04:27 Discharged to Home. Impression: Incomplete spontaneous without complication. - Condition is Stable. - Discharge Instructions: Incomplete Miscarriage. - Prescriptions for Methergine 0.2 mg Oral tablet - take 1 tablet by ORAL route every 6 hours; 5 tablet. Tylenol- Codeine #4 300-60 mg Oral Tablet - take 1 tablet by ORAL route every 6 hours As needed; 10 tablet. - Medication Reconciliation Form, Thank You Letter, Antibiotic Education, Prescription Opioid Use form. - Follow up: Francisco London MD; When: 1 - 2 days; Reason: Re-evaluation by your physician. Signatures: Dispatcher [employer] Vonda Kenny RN RN ak1 Mariely Evans RN RN ea Starr, Gregory, MD MD Corrections: (The following items were deleted from the chart) 03:01 02:28 1st Trimest Single 1st Fetus+[id number].RAD.[id number] ordered. [facility] EDTX 04:59 04:27 03/15/2019 04:27 Discharged to Home. Impression: Incomplete spontaneous ak1 without complication. Condition is Stable. Forms are Medication Reconciliation Form, Thank You Letter, Antibiotic Education, Prescription Opioid Use. Follow up: Francisco London; When: 1 - 2 days; Reason: Re-evaluation by your physician. gs
[2019-03-15] MEDS ORDERED: METHYLERGONOVINE 0.2MG/ML AMP IM ONE (04:56)
--- NOTE | 2019-03-15 09:25 | RAD REPORT ---
EXAM DESCRIPTION: US - Transvaginal OB - 03/15/2019 3:10 am CLINICAL HISTORY: The patient is 28 years old and is Female; Abd pain;Vaginal bleeding TECHNIQUE: Real-time transvaginal obstetrical ultrasound of the maternal pelvis and a first trimeste r with image documentation. Transvaginal imaging was used for better evaluation of the fe tus and adnexa. COMPARISON: No relevant prior studies available. FINDINGS: GESTATION: There is no evidence of an intrauterine . UTERUS/CERVIX: The endometrium is thickened measuring 1.4 cm. The cervical canal is distended with echogenic material. No myometrial mass. OVARIES: Unremarkable. No mass. Normal arterial and venous color Doppler and spectral waveform i s present. FREE FLUID: No free fluid. IMPRESSION: No evidence of intrauterine . Given the thickened heterogeneous endometrium and distention of the cervical canal, findings are concerning for failed first trimester . Michele mmend correlation with patient's beta hCG and follow-up. Electronically signed by: Maribeth Hyde MD 03/15/2019 5:05 AM CDT Due to temporary technical issues with the PACS/Fluency reporting system, reports are being signed by the in house radiologist as a courtesy to ensure prompt reporting. The interpreting radiologist is f ully responsible for the content of the report.
== END 2019-03-15 04:59 | disposition home or self-care (01) ==
LOC: ER 23:47
DX: O03.4 Incomplete spontaneous abortion without complication (principal); J45.909 Unspecified asthma, uncomplicated; Z3A.01 Less than 8 weeks gestation of pregnancy
CPT/HCPCS: 36415; 76817; 80048; 81003; 81015; 81025; 84702; 85025; 86900; 86901; 87086; 87088; 88305; 96372; 96374; 99284; J2210; J3010

== ENCOUNTER 2023-07-21 20:56 | Inpatient (IN) | payer BC ==
--- OUTSIDE RECORDS SUMMARY | 2023-07-21 21:11 | XMS REPORT | Continuity of Care Document ---
:1990 Author Organization [facility] t Address [address] [place] [address] [place] [id number] Care Team Providers Name Role Phone FOUND, PCP NOT Primary Care Physician Unavailable JATINDER WILL Attending Clinician Unavailable SPENSER HERCULES Attending Clinician Unavailable Estevan Levine MD Attending Clinician Heather Broussard Attending Clinician HEATHER BROUSSARD Attending Clinician Unavailable Eugenia Attending Clinician Unavailable Isela Attending Clinician Unavailable Doctor Unassigned, Pray Attending Clinician Unavailable Eugenia Admitting Clinician Unavailable Isela Admitting Clinician Unavailable Payers Payer Name Policy Type Policy Number Effective Date Expiration Date Roshni balderas BC/NORBERTO PPO [id number] 2022 00:00:00 [place] [id number] 2022 00:00:00 [place] ([place] Problems Condition Condition Condition Status Onset Resolution Last Treating Co mments Source Name Details Category Date Date Treatment Clinician Date Breast Breast Diagnosis Active 2023-01-07 Madeline guardadorivolodymyr seroma seroma 01-05 23:36:05 l (disorder) (disorder) 00:00: He rmann Active 00 01/05/2023 Diagnosis 01/07/2023 [facility] History of History Diagnosis Active 2023-01-07 Memoria augmentati of 01-05 23:36:05 l on of augmentati 00:00: Florentin n breast on of 00 (situation breast ) (situation ) Active 01/05/2023 Diagnosis 01/07/2023 [facility] CONCERN CONCERN Diagnosis Active 2023-01-09 Memoria ABOUT ABOUT 01-05 16:00:00 l IMPLANT IMPLANT 00:00: Jameel Active 00 01/05/[address] 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 01-05 23:36:05 23:36:05 l in situ in situ 16:23: Jameel (finding) (finding) 00 01/05/2023 Diagnosis 01/07/2023 [facility] Pain of Pain of Diagnosis 2023-01-07 2023-01-07 Memoria breast breast 01-05 23:36:05 23:36:05 l (finding) (finding) 14:31: Herm zoe 01/05/2023 00 Diagnosis 01/07/2023 [facility] Allergies, Adverse Reactions, Alerts Allergy Allergy Status Severity Reaction(s) Onset Inactive Treating Comm ents Source Name Type Date Date Clinician No Known No Known Active [facility] Medicati Medicati l on [place] Allergie Allergie s s Social History Social Habit Start Date Stop Date Quantity Comments Source [facility] Social 2023-04-24 2023-04-[address] function 00:00:00 00:00:00 Hospital Tobacco use and 2019-03-02 2019-03-02 Smokeless [facility] exposure 00:00:00 00:00:00 tobacco non-user Hospital Alcohol intake 2019-03-02 2019-03-02 Ex-drinker [facility] 00:00:00 00:00:00 (finding) Hospital Sex Assigned At [birth year] [facility] 00:00:00 00:00:00 Hospital Smoking Status Start Date Stop Date Source Tobacco smoking status [facility] Medications Ordered Filled Start Stop Current Ordering Indication Dosage Frequency Signature Comments Components Source Medication Medication Date Date Medication? Clinician (SIG) Name Name dicyclomine No 20mg Q.5D Take 1 [facility] (BENTYL) 20 04-25 tablet (20 s t mg tablet 00:00: 04:59 mg total) Ho spita 00 :00 by mouth 2 l (two) times a day for 10 days. amoxicillin No 1{tbl} Q12H Take 1 M ethodi -pot 04-[address] clavulanate 00:00: 04:59 mouth [facility] (AUGMENTIN) 00 :00 every 12 l 875-125 mg (twelve) per tablet hours for 7 days. ondansetron No 4mg Q8H Take 1 [facility] ODT 04-25 tablet (4 st (ZOFRAN-ODT 00:00: 04:59 mg total) Hospita ) 4 MG 00 :00 by mouth l disintegrat every 8 ing tablet (eight) hours as needed for nausea or vomiting for up to 7 days. Vital Signs Vital Name Observation Time Observation Value Comments Source Systolic blood 2023-04-24 01:03:00 134 mm[Hg] [facility] pressure Diastolic blood 2023-04-24 01:03:00 84 mm[Hg] [facility] pressure Heart rate 2023-04-24 01:03:00 72 /min Tato godinez Body temperature 2023-04-24 01:03:00 37.11 [facility] Respiratory rate 2023-04-24 01:03:00 18 /min Patti is [facility] Body height 2023-04-24 01:03:00 165.1 cm [facility] Body weight 2023-04-24 01:03:00 90.13 kg [facility] BMI 2023-04-24 01:03:00 33.07 kg/m2 [facility] Oxygen saturation in 2023-04-24 01:03:00 97 /min [facility] Arterial blood by Pulse oximetry Systolic blood 2023-04-24 01:03:00 134 mm[Hg] [facility] pressure Diastolic blood 2023-04-24 01:03:00 84 mm[Hg] [facility] pressure Heart rate 2023-04-24 01:03:00 72 /min [facility] Body temperature 2023-04-24 01:03:00 37.11 Olga [facility] Respiratory rate 2023-04-24 01:03:00 18 /min [facility] Body height 2023-04-24 01:03:00 165.1 cm [facility] Body weight 2023-04-24 01:03:00 90.13 kg [facility] BMI 2023-04-24 01:03:00 33.07 kg/m2 [facility] Oxygen saturation in 2023-04-24 01:03:00 97 /min [facility] Arterial blood by Pulse oximetry Systolic blood 2023-04-24 01:03:00 134 mm[Hg] [facility] pressure Diastolic blood 2023-04-24 01:03:00 84 mm[Hg] [facility] pressure Heart rate 2023-04-24 01:03:00 72 /min [facility] Body temperature 2023-04-24 01:03:00 37.11 Olga [facility] Respiratory rate 2023-04-24 01:03:00 18 /min [facility] Body height 2023-04-24 01:03:00 165.1 cm [facility] Body weight 2023-04-24 01:03:00 90.13 kg [facility] BMI 2023-04-24 01:03:00 33.07 kg/m2 [facility] Oxygen saturation in 2023-04-24 01:03:00 97 /min [facility] Arterial blood by Pulse oximetry Systolic blood 2023-04-25 01:36:24 154 mm[Hg] [facility] pressure Diastolic blood 2023-04-25 01:36:24 95 mm[Hg] [facility] pressure Heart rate 2023-04-25 01:36:24 77 /min [facility] Body temperature 2023-04-25 01:36:24 37.06 Olga [facility] Respiratory rate 2023-04-25 01:36:24 18 /min [facility] Oxygen saturation in 2023-04-25 01:36:24 99 /min [facility] Arterial blood by Pulse oximetry Systolic blood 2023-04-24 01:03:00 134 mm[Hg] [facility] pressure Diastolic blood 2023-04-24 01:03:00 84 mm[Hg] [facility] pressure Heart rate 2023-04-24 01:03:00 72 /min [facility] Body temperature 2023-04-24 01:03:00 37.11 Olga [facility] Respiratory rate 2023-04-24 01:03:00 18 /min Patti is [facility] Body height 2023-04-24 01:03:00 165.1 cm [facility] Body weight 2023-04-24 01:03:00 90.13 kg [facility] BMI 2023-04-24 01:03:00 33.07 kg/m2 [facility] Oxygen saturation in 2023-04-24 01:03:00 97 /min [facility] Arterial blood by Pulse oximetry Temperature Oral (F) 2023-01-05 16:00:00 98.1 F [facility] Systolic (mm Hg) 2023-01-05 16:00:00 Live rial [place] Diastolic (mm Hg) 2023-01-05 16:00:00 Mem orial Jameel Height 2023-01-05 07:13:00 5 [ft_i] [facility] BMI Calculated 2023-01-05 07:13:00 Memori al Jameel Weight 2023-01-05 07:13:00 [facility] Heart Rate 2023-01-05 07:13:00 [facility] Procedures Procedure Date / Time Performing Clinician Source Performed CT ABDOMEN PELVIS W 2023-04-25 07:35:21 Erika Mauricio [facility] CONTRAST [place] URINE CULTURE 2023-04-25 05:36:00 Erika Mauricio spital [place] POC , URINE 2023-04-25 05:03:00 Estevan Levine [facility]ominational [facility] CBC WITH PLATELET AND 2023-04-25 04:56:00 [facility] DIFFERENTIAL [place] COMPREHENSIVE METABOLIC 2023-04-25 04:56:00 [facility] PANEL [place] LACTIC ACID LEVEL - NOW 2023-04-25 04:56:00 [facility] AND REPEAT 2X EVERY 3 [place] HOURS LIPASE LEVEL 2023-04-25 04:56:00 [facility] Ho spital [place] URINALYSIS SCREEN AND 2023-04-25 04:56:00 [facility] MICROSCOPY, WITH REFLEX [place] TO CULTURE HCG QUALITATIVE, URINE 2023-04-25 04:56:00 [facility] SCREEN [place] ESTIMATED GFR 2023-04-25 04:56:00 [facility] Ho spital [place] CBC/DIFF 2023-04-24 01:31:00 [facility] 2023-04-24 01:31:00 Amor, Elicia [facility] SED RATE 2023-04-24 01:31:00 [facility] C-REACTIVE PROT 2023-04-24 01:31:00 Elicia Amor [facility] h CBC 2023-04-24 01:31:00 [facility] PO[facility]INE DIPSTICK - 2023-04-24 01:31:00 [facility] 2023-04-24 01:31:00 [facility] CBC/DIFF 2023-04-24 01:31:00 [facility]OT 2023-04-24 01:31:00 Amor, Elicia [facility] 2023-04-24 01:31:00 [facility]INE DIPSTICK - 2023-04-24 01:31:00 AmorElicia [facility] CBC 2023-04-24 01:31:00 AmorElicia [facility] Plan of Care Planned Activity Planned Date Details Comments Source Future Scheduled 2023-07-08 COVID-[address] [facility] Test 02:20:34 (#1) [code = COVID-19 VACCINE (#1)] Future Scheduled 2023-07-08 [facility] 02:20:34 screening (procedure) [code = 313429425] Future Scheduled 2023-07-08 [facility] for [facility] Test 02:20:34 malignant neoplasm of cervix (procedure) [code = 455896447] Future Scheduled 2023-07-08 [facility]ENZA [facility]ACCINE [facility] Test 02:20:34 (#1) [code = INFLUENZA VACCINE (#1)] Future Scheduled 2023-05-12 IMM Influenza [facility] Test 00:00:00 Seasonal (>/= 19 yrs) [code = IMM Influenza Seasonal (>/= 19 yrs)] Future Scheduled 2018 Screening for [facility] Test 00:00:00 malignant neoplasm of cervix (procedure) [code = 994442014] Future Scheduled 2009 Screening for [facility] Test 00:00:00 malignant neoplasm of cervix (procedure) [code = 087775813] Future Scheduled 1988 COVID-19 Vaccine [facility] Test 00:00:00 (#1) [code = COVID-19 Vaccine (#1)] Encounters Start End Encounter Admission Attending Care Care Encounter Source Date/Time Date/Time Type Type Clinicians Facility Department ID 2023-07-19 2023-07-19 Emergency ER JATINDER WILL [facility] [id number] CHRISTU 08:20:00 13:47:00 -[id number] [facility][Note 3] 2023-07-01 2023-07-01 Emergency ER DIOMEDES [facility] [id number] CHRISTU 09:01:00 11:17:00 SPENSER -[id number] [facility][Note 3] 2023-04-24 2023-04-25 Emergency TuGabriela-Luis [id number] Methodi 20:33:00 04:37:[address] 3.430.2.7 Hospit a .[id number] l .8 2023-04-24 2023-04-25 Emergency ESTEVAN LEVINE [facility] [id number] [place] 00:00:00 00:00:[address] 2023-04-24 2023-04-24 Emergency [facility] [address] [id number] Godwin 01:03:00 05:26:00 Health 2023-04-24 2023-04-24 Emergency [facility] [id number] [place] 01:03:00 05:26:[address] [place] [id number] [facility] .2.7.2.6869 [id number] 7107-08-14 2023-04-24 Emergency [facility] [id number] Tato 01:03:00 05:26:00 [facility] 2023-01-05 2023-01-05 Emergency [facility] [id number] Memoria 07:00:00 16:31:[address] 2023-01-05 2023-01-05 Emergency [facility] [id number] Memoria 07:00:00 16:31:[address] 2023-01-05 2023-01-05 Outpatient Gerbus, [facility] [id number] 02:00:00 11:31:00 Heather Page 2023-01-05 2023-01-05 Emergency E GERBUS, [facility] [id number] [facility] 02:00:00 11:31:00 HEATHER 2022-11-18 2022-11-18 Outpatient FOG_Mehlhof AOSM AOSM [id number] Marlyn 00:00:00 00:00:00 Yaron [id number] [facility] 2022-11-03 2022-11-03 Outpatient FOG_Mehlhof AOSM AOSM [id number] Marlyn 00:00:00 00:00:00 Yaron [id number] [facility] 2022-11-03 2022-11-03 Outpatient FOG_Mehlhof AOSM AOSM [id number] Marlyn 00:00:00 00:00:00 Yaron [id number] [facility] 2022-10-14 2022-10-14 Outpatient FOG_Burke_R AOSM AO [id number] Marlyn 00:00:00 00:00:00 Clarence [id number] [facility] 2019-03-18 2019-03-18 Patient Doctor MILA [id number] 00:00:00 00:00:00 Secure Msg Unassigned, ALVIN 350.1.13.10 Pray [facility] [id number] [id number] Results Test Description Test Time Test Comments Results Result Comments Source Urine culture 2023-04-26 21:10:00 Test Item Value Reference Range Interpretation Comme nts Urine culture isolate Mixed ortiz <=10-3 Specimen InformationSpecimen (test code = 73649-1) col/cc Source : UrineSpecimen Site: Clean catch [facility] , [id number] 05:03:00 Test Item Value Reference Range Interpretation Comments test urine, POC (test Negative code = 2106-3) Internal QC (test code = 257) QC acceptable Lab Interpretation (test code = Normal 01197-4) [facility] Urine - [id number] 01:31:00 Test Item Value Reference Range Interpretation Comments (test code = 7173) NEGATIVE Control (test code = 7172) PASS Lab Interpretation (test code = Normal 81727-5) [facility] Urine - [id number] 01:31:00 Test Item Value Reference Range Interpretation Comments (test code = 7173) NEGATIVE Control (test code = 7172) PASS Lab Interpretation (test code = Normal 45338-6) [facility]56-58 10:51:44 Test Item Value Reference Range Interpretation Comments RADRPT (test code EXAM: US BREASTDATE: = RADRPT) 01/05/2023 5:10 INDICATION: concern for seroma, wound dehiscence ADDITIONAL INFORMATION: 32-year-old female status post breast implants in November 2022 now presenting with open wound.COMPARISON: None. TECHNIQUE: Focused multiplanar high-frequency (12 MHz) grayscale and color Doppler ultrasound images of the right breast were obtained in the area of concern based on report from prior mammogram. The female technologist was in the room during all imaging and examinations.FINDINGS:In the right breast, at the lower lateral quadrant, open scars identified (distance from the nipple not provided). Edematous changes are noted subjacent to the scar without increased vascularity. No organized drainable fluid collections identified.No other focal lesions are identified.IMPRESSION:Edema tous changes suggested in the region of the surgery. No drainable fluid collection.Recommend follow up dedicated breast ultrasound in the breast imaging department to optimize care. Also, recommend follow up with the surgeon for possible use of antibiotics and wound care. Note:1. Ultrasound is not a screening modality for the breast.2. Ultrasound is used to determine whether a palpable or mammographically demonstrable mass is solid or cystic.3. Ultrasound cannot reliably distinguish benign from malignant solid masses.4. Some solid breast masses are isoechoic to the remainder of the tissue and cannot be detected sonographically.[facility]44 Test Item Value Reference Range Interpretation Comments RADRPT (test code EXAM: US BREASTDATE: = RADRPT) 01/05/2023 5:10 INDICATION: concern for seroma, wound dehiscence ADDITIONAL INFORMATION: 32-year-old female status post breast implants in November 2022 now presenting with open wound.COMPARISON: None. TECHNIQUE: Focused multiplanar high-frequency (12 MHz) grayscale and color Doppler ultrasound images of the right breast were obtained in the area of concern based on report from prior mammogram. The female technologist was in the room during all imaging and examinations.FINDINGS:In the right breast, at the lower lateral quadrant, open scars identified (distance from the nipple not provided). Edematous changes are noted subjacent to the scar without increased vascularity. No organized drainable fluid collections identified.No other focal lesions are identified.IMPRESSION:Edema tous changes suggested in the region of the surgery. No drainable fluid collection.Recommend follow up dedicated breast ultrasound in the breast imaging department to optimize care. Also, recommend follow up with the surgeon for possible use of antibiotics and wound care. Note:1. Ultrasound is not a screening modality for the breast.2. Ultrasound is used to determine whether a palpable or mammographically demonstrable mass is solid or cystic.3. Ultrasound cannot reliably distinguish benign from malignant solid masses.4. Some solid breast masses are isoechoic to the remainder of the tissue and cannot be detected sonographically.UT SECTION: [facility]rc[facility]kMPHYHXAHH4091-08-05 07:26:00 Test Item Value Reference Range Interpretation Comments Glucose Lvl (test code = Glucose Lvl) 108 70-99 [facility] CenterFnfzqirBMFCGCREC5263-68-85 07:26:00 Test Item Value Reference Range Interpretation Comments BUN (test code = BUN) 12 7-22 [place] 290363-04-27 07:26:00 Test Item Value Reference Range Interpretation Comments Creatinine Lvl (test code = Creatinine 0.77 0.50-1.40 Lvl) [facility] CenterKdgrngsYGAWLXSDW5262-98-86 07:26:00 Test Item Value Reference Range Interpretation Comments Sodium Lvl (test code = Sodium Lvl) 140 135-145 [facility] CenterDltitybWYWMGDQTA9743-88-76 07:26:00 Test Item Value Reference Range Interpretation Comments Potassium Lvl (test code = Potassium 3.9 3.5-5.1 Lvl) [facility] CenterQskkkrkCNQDGRWGF4147-93-64 07:26:00 Test Item Value Reference Range Interpretation Comments Chloride Lvl (test code = Chloride Lvl) 111 95-109 [facility] CenterXlkfrumUXOENOQAS5757-15-39 07:26:00 Test Item Value Reference Range Interpretation Comments CO2 (test code = CO2) 24 24-32 [facility] CenterWlvgxzzZQAPOXNTD6476-20-96 07:26:00 Test Item Value Reference Range Interpretation Comments Calcium Lvl (test code = Calcium Lvl) 9.0 8.5-10.5 [facility] CenterNwvynsjIHLGOFUAK0389-52-57 07:26:00 Test Item Value Reference Range Interpretation Comments AGAP (test code = AGAP) 8.9 10.0-20.0 [place] 290363-04-27 07:26:00 Test Item Value Reference Range Interpretation Comments eGFR (test code = eGFR) 104 [facility]wxjxreOZOKXPMOAH4639-98-76 07:26:00 Test Item Value Reference Range Interpretation Comments WBC X 10x3 (test code = WBC X 10x3) 7.9 3.7-10.4 [place] 434703-04-27 07:26:00 Test Item Value Reference Range Interpretation Comments RBC X 10x6 (test code = RBC X 10x6) 4.44 4.20-5.40 [place] 434703-04-27 07:26:00 Test Item Value Reference Range Interpretation Comments Hgb (test code = Hgb) 13.4 12.0-16.0 [place] [address]-04-27 07:26:00 Test Item Value Reference Range Interpretation Comments Hct (test code = Hct) 40.9 36.0-48.0 [place] 434703-04-27 07:26:00 Test Item Value Reference Range Interpretation Comments MCV (test code = MCV) 92.2 80.0-98.0 [place] [address]-04-27 07:26:00 Test Item Value Reference Range Interpretation Comments MCH (test code = MCH) 30.2 pg 27.0-31.0 [place] 434703-04-27 07:26:00 Test Item Value Reference Range Interpretation Comments MCHC (test code = MCHC) 32.8 32.0-36.0 [place] 434703-04-27 07:26:00 Test Item Value Reference Range Interpretation Comments RDW (test code = RDW) 12.7 11.5-14.5 [place] 434703-04-27 07:26:00 Test Item Value Reference Range Interpretation Comments Platelet (test code = Platelet) 221 133-450 [facility] HospitalZypshulEMYJGIMRXD7693-70-36 07:26:00 Test Item Value Reference Range Interpretation Comments MPV (test code = MPV) 7.4 7.4-10.4 [place] 434703-04-27 07:26:00 Test Item Value Reference Range Interpretation Comments Segs (test code = Segs) 59.6 45.0-75.0 [place] [address]-04-27 07:26:00 Test Item Value Reference Range Interpretation Comments Lymphocytes (test code = Lymphocytes) 31.7 20.0-40.0 [place] [address]-04-27 07:26:00 Test Item Value Reference Range Interpretation Comments Monocytes (test code = Monocytes) 6.6 2.0-12.0 [place] 434703-04-27 07:26:00 Test Item Value Reference Range Interpretation Comments Eosinophils (test code = 1.2 See_Comment [A utomated message] The Eosinophils) system which ge nerated this result tra nsmitted reference range : <=4.0. The reference r gurjit was not used to int erpret this result as normal/abnormal . [facility] HospitalMzoznbuTXJNYZXZYO1660-99-49 07:26:00 Test Item Value Reference Range Interpretation Comments Basophils (test code = 0.9 See_Comment [Aut omated message] The Basophils) system which ge nerated this result tra nsmitted reference range : <=1.0. The reference r gurjit was not used to int erpret this result as normal/abnormal . [place] 434703-04-27 07:26:00 Test Item Value Reference Range Interpretation Comments Neutrophils # (test code = Neutrophils 4.7 1.5-8.1 #) [facility] HospitalVmrdnyuRXBLRQERZJ2656-40-65 07:26:00 Test Item Value Reference Range Interpretation Comments Lymphocytes # (test code = Lymphocytes 2.5 1.0-5.5 #) [facility] HospitalUthczzePAQGAIOTTB7567-27-86 07:26:00 Test Item Value Reference Range Interpretation Comments Monocytes # (test code 0.5 See_Comment [Aut omated message] The = Monocytes #) system which generated this result tra nsmitted reference range : <=0.8. The reference r gurjit was not used to int erpret this result as normal/abnormal . [facility] HospitalKejgnorMAWUAVWGFX3744-71-64 07:26:00 Test Item Value Reference Range Interpretation Comments Eosinophils # (test code 0.1 See_Comment [A utomated message] The = Eosinophils #) system whic h generated this result tra nsmitted reference range : <=0.5. The reference r gurjit was not used to int erpret this result as normal/abnormal . [facility] HospitalHmqzyjcCFSRQZXWUR5563-51-16 07:26:00 Test Item Value Reference Range Interpretation Comments Basophils # (test code 0.1 See_Comment [Aut omated message] The = Basophils #) system which generated this result tra nsmitted reference range : <=0.2. The reference r gurjit was not used to int erpret this result as normal/abnormal . [facility]krjoeqGYTXGBLGD4460-70-06 07:26:00 Test Item Value Reference Range Interpretation Comments Glucose Lvl (test code = Glucose Lvl) 108 70-99 [facility] CenterHnbwehjYJJIMFHSI7162-90-88 07:26:00 Test Item Value Reference Range Interpretation Comments BUN (test code = BUN) 12 7-22 [facility] CenterVqbzsdqAXCXODPTA9903-98-19 07:26:00 Test Item Value Reference Range Interpretation Comments Creatinine Lvl (test code = Creatinine 0.77 0.50-1.40 Lvl) [facility] CenterWokayzxXQGDYNSOR7280-64-56 07:26:00 Test Item Value Reference Range Interpretation Comments Sodium Lvl (test code = Sodium Lvl) 140 135-145 [facility] CenterVlyehdbVQWUHUOEF7219-24-76 07:26:00 Test Item Value Reference Range Interpretation Comments Potassium Lvl (test code = Potassium 3.9 3.5-5.1 Lvl) [facility] CenterJnaagczIHOVCRTLZ8498-75-78 07:26:00 Test Item Value Reference Range Interpretation Comments Chloride Lvl (test code = Chloride Lvl) 111 95-109 [facility] CenterOlhpgzoYYHYQKEXF3867-39-56 07:26:00 Test Item Value Reference Range Interpretation Comments CO2 (test code = CO2) 24 24-32 [facility] CenterYyjwowbKSKODDWXA4459-86-92 07:26:00 Test Item Value Reference Range Interpretation Comments Calcium Lvl (test code = Calcium Lvl) 9.0 8.5-10.5 [facility] CenterRrfzqvfPMCAQQMCE0490-13-85 07:26:00 Test Item Value Reference Range Interpretation Comments AGAP (test code = AGAP) 8.9 10.0-20.0 [facility]81[facility]04 07:26:00 Test Item Value Reference Range Interpretation Comments eGFR (test code = eGFR) 104 [facility]K3721[facility]60-64 07:26:00 Test Item Value Reference Range Interpretation Comments WBC X 10x3 (test code = WBC X 10x3) 7.9 3.7-10.4 [facility]pojjmcWMVDTCWYDI5704-12-09 07:26:00 Test Item Value Reference Range Interpretation Comments RBC X 10x6 (test code = RBC X 10x6) 4.44 4.20-5.40 [facility]LusqldlUDYCCCAIKF3358-64-74 07:26:00 Test Item Value Reference Range Interpretation Comments Hgb (test code = Hgb) 13.4 12.0-16.0 [place] 434703-04-27 07:26:00 Test Item Value Reference Range Interpretation Comments Hct (test code = Hct) 40.9 36.0-48.0 [place] [address]703-04-27 07:26:00 Test Item Value Reference Range Interpretation Comments MCV (test code = MCV) 92.2 80.0-98.0 [place] [address]703-04-27 07:26:00 Test Item Value Reference Range Interpretation Comments MCH (test code = MCH) 30.2 pg 27.0-31.0 [place] [address]703-04-27 07:26:00 Test Item Value Reference Range Interpretation Comments MCHC (test code = MCHC) 32.8 32.0-36.0 [facility]CwdanqsEZDAVQHYMM2765-01-29 07:26:00 Test Item Value Reference Range Interpretation Comments RDW (test code = RDW) 12.7 11.5-14.5 [place] [address]703-04-27 07:26:00 Test Item Value Reference Range Interpretation Comments Platelet (test code = Platelet) 221 133-450 [facility] HospitalDgclwvrALPUEKSTIC6798-55-11 07:26:00 Test Item Value Reference Range Interpretation Comments MPV (test code = MPV) 7.4 7.4-10.4 [facility]PbuqxebLSATAJLNQQ8396-18-52 07:26:00 Test Item Value Reference Range Interpretation Comments Segs (test code = Segs) 59.6 45.0-75.0 [place] [address]703-04-27 07:26:00 Test Item Value Reference Range Interpretation Comments Lymphocytes (test code = Lymphocytes) 31.7 20.0-40.0 [place] [address]703-04-27 07:26:00 Test Item Value Reference Range Interpretation Comments Monocytes (test code = Monocytes) 6.6 2.0-12.0 [place] [address]-04-27 07:26:00 Test Item Value Reference Range Interpretation Comments Eosinophils (test code = Eosinophils) 1.2 <=4.0 [place] [address]703-04-27 07:26:00 Test Item Value Reference Range Interpretation Comments Basophils (test code = Basophils) 0.9 <=1.0 [place] [address]703-04-27 07:26:00 Test Item Value Reference Range Interpretation Comments Neutrophils # (test code = Neutrophils 4.7 1.5-8.1 #) [facility]VxgglhwZHPFDWULQA6528-37-88 07:26:00 Test Item Value Reference Range Interpretation Comments Lymphocytes # (test code = Lymphocytes 2.5 1.0-5.5 #) [facility] HospitalXivuaaxLJLBJFYREX0356-00-04 07:26:00 Test Item Value Reference Range Interpretation Comments Monocytes # (test code = Monocytes #) 0.5 <=0.8 [place] [address]703-04-27 07:26:00 Test Item Value Reference Range Interpretation Comments Eosinophils # (test code = Eosinophils 0.1 <=0.5 #) [facility] HospitalTounplpUEXFVPLWSE5599-27-34 07:26:00 Test Item Value Reference Range Interpretation Comments Basophils # (test code = Basophils #) 0.1 <=0.2 [facility] CT UP EXTREM W/O CONT [id number] 07:50:00 Patient Name: KEREN VALLE Unit No: [id number] EXAMS: CPT CODE: [id number] [place] EXTREM W/[place] [address] CT OF THE LEFT WRIST WITH 3-D, SAGITTAL AND CORONAL RECONSTRUCTIONS DIAGNOSIS: Thereis a comminuted fracture of the scaphoid with a nonunion. The fracture is seen involving the waist of the scaphoid with cortical margination on both sides of the fracture. There is a healed fracture ofthe distal pole of the scaphoid on the radial side with deformity. The proximal pole of the scaphoidhas a nonunion inconsistent 3 separate bone fragment. There is extension of the fractures into the radiocarpal scaphoid joint and also into the articulation between the proximal pole of the scaphoid and the capitate. 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 There is no evidence for carpal malalignment. There is posterior displacement of the distal ulna relative to the radius with rotation. Correlation is recommended. COMMENT: COMPARISON: No prior exams available. Scans were performed with thin sections and reconstructions were obtained. CT radiation dose optimization is achieved for this examination by the use of a CT protocol in accordance with ACR practice standards and adherence to athletics director's recommendations. 3-D reconstructions were performed on a separate workstation. A chronic scaphoid fracture is present as noted. Degenerative changes are as described. Reconstructions help confirm these impressions. at 0750 Reported and signed by: Greg Martinez MD CC: Heather Shepard M.D. Technologist: Gennaro Ding,RT(R) CTDI: DLP: Trnscrpt: 08/30/2019 (0750) VaishaliL [facility] NAME: KEREN VALLE [address] [facility] PHYS: Heather Barragan : 1990 AGE: 29 SEX: F [place] [address] LOC: Y.RAD PHONE #: [phone] EXAM DATE: 08/29/2019 STATUS: DEP CLI FAX #: [phone] RAD #: D/C DT PAGE 1 Signed Report Patient Name: KEREN VALLE Unit No: [id number] EXAMS: CPT CODE: [id number] [place] EXTREM W/[place] [address] (Continued) Orig Print D/T: S: 08/30/2019 (0753) [facility] NAME: KEREN VALLE [address] [facility] PHYS: Heather Barragan : 1990 AGE: 29 SEX: F [place] [address] LOC: Y.RAD PHONE #: [phone] EXAM DATE: 08/29/2019 STATUS: DEP CLI FAX #: [phone] RAD #: D/C DT PAGE 2 Signed Report- MRI UP JNT W/O CONT [id number] 23:56:00 Patient Name: KEREN VALLE Unit No: [id number] EXAMS: CPT CODE: [id number] MRI UP JNT W/[place] [address] MRI OF THE LEFT WRIST DIAGNOSIS: 1. There is a fracture through the waist of the scaphoid. The fracture line is persistent and there is associated degenerative cystic changes on either side of the described fracture. 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 The proximal pole of the scaphoid is decreased in signal on T1-weighted sequences and osteonecrosis cannot be excluded. 2. There appears to be a partial-thickness interstitial tear of the articular disc TFCC. HISTORY: S62.022 COMPARISON: none TECHNIQUE: FINDINGS: Chronic nonunion of the scaphoid. No arthrosynovial cyst. The scapholunate and lunotriquetral ligaments are intact. TFCC abnormality as described. There are no significant degenerative changes. The dorsal extensor tendons are normal. The volar flexortendons are normal. The carpal tunnel is normal. There are no regional soft tissue abnormalities. at 6207 Reported and signed by: Zeke Martines MD CC: Heather Shepard M.D. Technologist: RENETTA MASSEY MRI Transcribed D/ (7750) StephenGVG [facility] NAME: KEREN VALLE [address] [facility] PHYS: Heather Barragan : 1990 AGE: 29 SEX: F [place] [address] LOC: Y.RAD PHONE #: [phone] EXAM DATE: 08/29/2019 STATUS: REG CLI FAX #: [phone] RAD #: D/C DT PAGE1 Signed Report Patient Name: KEREN VALLE Unit No: [id number] EXAMS: CPT CODE: [id number] [place] JNT W/[place] [address] (Continued) Orig Print D/T: S: 08/29/2019 (3834) [facility] NAME: KEREN VALLE [address] [facility] PHYS: Heather Barragan : 1990AGE: 29 SEX: F [place] [address] LOC: Y.RAD PHONE #: [phone] EXAM DATE: 08/29/2019 STATUS: REG CLI FAX #: [phone] RAD #: D/C DT PAGE 2 Signed Report
[2023-07-21 22:52] LABS: Absolute Lymphocytes (CBC) 2.1 K/uL (0.7-4.9); Hematocrit 38.7 % (36.0-45.0); Lymphocytes % 32.7 % (15.3-44.8); MPV 7.5 fL (7.6-11.3); Platelets 218 thou/uL (152-406); Specific Gravity 1.018 (1.005-1.030); Urine Bacteria None Seen /HPF (<20); Urine Bilirubin NEGATIVE (Negative); Urine Blood Negative (Negative); Urine Clarity Turbid (Clear); Urine Color Light-Yellow (Yellow); Urine Glucose NEGATIVE (Negative); Urine Mucus Slight /HPF (None Seen); Urine Protein NEGATIVE (Negative); Urine RBC <5 /HPF (None Seen); Urine Urobilinogen Normal (Normal); Urine pH 5.5 (5.0-7.0)
[2023-07-21] MEDS ORDERED: FAMOTIDINE 20 MG/2 ML VIAL IV ONE (22:57)
[2023-07-21] MEDS ORDERED: NA CHLORIDE 0.9% 1,000 ML ONE (22:57)
[2023-07-21] MEDS ORDERED: MORPHINE 4 MG/ML SYR ONE (22:57)
[2023-07-21] MEDS ORDERED: ONDANSETRON 4 MG/2 ML VIAL ONE (22:57)
[2023-07-21 23:05] LABS: Albumin 3.4 g/dL (3.4-5.0); Bilirubin Total 0.3 mg/dL (0.2-1.0); Potassium 3.5 mEq/L (3.5-5.1); Protein, Total 7.9 g/dL (6.4-8.2)
--- NOTE | 2023-07-22 01:57 | EDPHYS ---
Physician Documentation [facility] Name: Olimpia Paz Age: 33 yrs Sex: Female : 1990 Arrival Date: 07/21/2023 Time: 20:56 Bed 5 Private MD: Galileo Cabral ED Physician Rosalie Georges HPI: 07/21 22:07 This 33 yrs old Female presents to ER via Unassigned with complaints of cp Abdominal Pain. 22:07 The patient presents with abdominal pain in the right upper quadrant, right lower cp quadrant. Onset: The symptoms/episode began/occurred 5 day(s) ago. Associated signs and symptoms: Pertinent positives: nausea and vomiting, diarrhea, Pertinent negatives: fever. 22:07 Patient reports she was seen at [place] this past Monday and told pain was due cp to gallbladder and to f/u. Presents to this ED with increased right upper abdomen pain. 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 - Social history:: Smoking status: Patient denies any tobacco usage or history of. ROS: 22:10 Abdomen/GI: Positive for abdominal pain, nausea, vomiting, diarrhea, of the right side cp of abdomen, Negative for constipation, 22:10 Eyes: Negative for injury, pain, redness, and discharge, cp 22:10 Constitutional: Negative for body aches, chills, fever, poor PO intake, 22:10 ENT: Negative for drainage from ear(s), ear pain, sore throat, difficulty swallowing, difficulty handling secretions, 22:10 Cardiovascular: Negative for chest pain, palpitations, 22:10 Respiratory: Negative for cough, shortness of breath, 22:10 Neuro: Negative for altered mental status, dizziness, headache, weakness, 22:10 All other systems are negative, Exam: 22:15 Constitutional: The patient appears in no acute distress, alert, awake, non-toxic, well cp developed, well nourished, in obvious pain, uncomfortable, 22:15 Head/Face: Normocephalic, atraumatic. cp 22:15 Eyes: Periorbital structures: appear normal, Conjunctiva: normal, no exudate, no injection, Sclera: no appreciated abnormality, Lids and lashes: appear normal, bilaterally, 22:15 ENT: External ear(s): are unremarkable, Nose: is normal, Mouth: Lips: moist, Oral mucosa: pink and intact, moist, Posterior pharynx: is normal, airway is patent, no erythema, no exudate, 22:15 Chest/axilla: Inspection: normal, 22:15 Cardiovascular: Rate: normal, Rhythm: regular, 22:15 Respiratory: the patient does not display signs of respiratory distress, Respirations: normal, no use of accessory muscles, no retractions, labored breathing, is not present, Breath sounds: are clear throughout, no decreased breath sounds, no stridor, no wheezing, 22:15 Abdomen/GI: Inspection: abdomen appears normal, Bowel sounds: active, all quadrants, Palpation: soft, in all quadrants, severe abdominal tenderness, in the right upper quadrant, rebound tenderness, is not appreciated, voluntary guarding, is elicited in the right upper quadrant, 22:15 Neuro: Motor: moves all fours, strength is normal, Gait: is steady, Vital Signs: 22:06 Weight 86.18 kg; Height 5 ft. 5 in. ; Pain 06/20; vc1 22:12 BP 158 / 98; Pulse 72; Resp 17; Temp 98.2; Pulse Ox 100% ; vc1 23:49 BP 126 / 79; Pulse 63; Resp 16; Pulse Ox 97% on R/A; jb4 07/22 04:51 BP 121 / 76; Pulse 68; Resp 16; Temp 98; Pulse Ox 99% on R/A; rv 07/21 22:06 Body Mass Index 31.62 (86.18 kg, 165.1 cm) vc1 07/21 22:06 Pain Scale: Adult vc1 [place] Coma Score: 04:51 Eye Response: spontaneous(4). Motor Response: obeys commands(6). Verbal Response: rv oriented(5). Total: 15. MDM: 07/21 22:07 Patient medically screened. cp 23:00 Differential diagnosis: appendicitis, cholecystitis, Cholelithiasis, gastritis, cp pancreatitis, Peptic Ulcer Disease, Perf. Duodenal Ulcer, Perf. Gastric Ulcer, Ureterolithiasis, urinary tract infection. 07/22 01:45 Data reviewed: vital signs, nurses notes, lab test result(s), radiologic studies, CT cp scan. 01:45 Consideration of Admission/Observation Patient was admitted/placed on observation. cp Management of patient was discussed with the following: Supervisor Cell Efficiency: DR Arambula, general surgery, will consult on patient and requests admission to hospitalist services. 07/21 22:08 Order name: CBC with Diff; Complete Time: 23:50 07/22 01:20 Interpretation: Normal except: MPV 7.5. 07/21 22:08 Order name: CMP; Complete Time: 23:50 07/22 01:20 Interpretation: Normal except: AST 46; ALT 151; GLOB 4.5; A/G 0.8. 07/21 22:08 Order name: Lipase; Complete Time: 23:50 07/22 01:20 Interpretation: Reviewed. 07/21 22:08 Order name: Test, Urine; Complete Time: 23:50 07/21 22:08 Order name: Urinalysis w/ reflexes; Complete Time: 23:50 07/22 01:20 Interpretation: Normal except: [facility] Turbid; UESTR 75. 07/22 03:39 Order name: Basic Metabolic Panel [facility] 07/22 03:39 Order name: Basic Metabolic Panel [facility] 07/22 03:39 Order name: CBC with Automated Diff [facility] 07/22 03:39 Order name: CBC with Automated Diff [facility] 07/22 03:39 Order name: Lipase [facility] 07/22 03:39 Order name: Lipase [facility] 07/22 03:39 Order name: Liver (Hepatic) Function [facility] 07/22 03:39 Order name: Liver (Hepatic) Function [facility] 07/21 22:51 Order name: CT Abd/Pelvis - IV Contrast Only 07/22 03:42 Order name: CONS Physician Consult [facility] 07/22 03:42 Order name: Dr Ralf Consult [facility] 07/21 22:08 Order name: IV Saline Lock; Complete Time: 22:56 07/21 22:08 Order name: Labs collected and sent; Complete Time: 22:56 07/21 22:08 Order name: NPO; Complete Time: 22:56 cp Administered Medications: 07/21 22:56 Drug: Famotidine IVP 20 mg IVP once; dilute with 10 mL 0.9% NaCl; give over 2 minutes rv Route: IVP; Site: right antecubital; 07/22 02:54 Follow up: Response: No adverse reaction rv 07/21 22:56 Drug: morphine IVP or IV 4 mg IVP once over 4 mins Route: IVP; Infused Over: 4 mins; rv Site: right antecubital; 07/22 02:53 Follow up: Response: No adverse reaction rv 07/21 22:57 Drug: Ondansetron IVP 4 mg IVP once; over 2 minutes Route: IVP; Site: right antecubital;rv 07/22 02:54 Follow up: Response: No adverse reaction rv 01:56 Drug: Piperacillin-Tazobactam IVPB 3.375 grams IVPB once over 60 mins; (mix in NS 100 rv mL) Route: IVPB; Infused Over: 60 mins; Site: right antecubital; 02:54 Follow up: Response: No adverse reaction; IV Status: Completed infusion; IV Intake: rv 100ml 01:56 Drug: Ondansetron IVP 4 mg IVP once; over 2 minutes Route: IVP; Site: right antecubital;rv 02:54 Follow up: Response: No adverse reaction rv Disposition Summary: 07/22/23 01:56 Hospitalization Ordered Notes: Hospitalization Status: Inpatient Admission cp Provider: Justin Goode [facility] cp Condition: Stable cp Problem: an ongoing problem cp Symptoms: have improved cp Bed/Room Type: Standard cp Room Assignment: 412(07/22/23 03:46) cg Diagnosis - Cholecystitis, unspecified cp Forms: - Medication Reconciliation Form cp - SBAR form cp - Leadership Thank You Letter cp Signatures: Dispatcher [employer] Jerry Plasencia PA PA cp Mirian Calixto RN RN cg Pastor Bland RN RN rv Yuliya Linares RN RN vc1 Corrections: (The following items were deleted from the chart) 03:46 01:56 cp cg
--- NOTE | 2023-07-22 01:57 | ER ---
Nurse's Notes [facility] Name: Olimpia Paz Age: 33 yrs Sex: Female : 1990 Arrival Date: 07/21/2023 Time: 20:56 Bed 5 Private MD: Galileo Cabral Diagnosis: Cholecystitis, unspecified Presentation: 07/21 22:06 Chief complaint: Patient states: 5 days ago I started having pain I went to the 1 emergency room and they said it was my gall bladder. I followed up with a surgeon and he can't get me in until the . Im out of the medicine for throwing up I just can't take it. Coronavirus screen: Vaccine status: Patient reports receiving the 2nd dose of the covid vaccine. VoAPPs Client denies travel out of the [place] in the last 14 days. At this time, the client does not indicate any symptoms associated with coronavirus-19. Ebola Screen: Patient negative for fever greater than or equal to 101.5 degrees Fahrenheit, and additional compatible Ebola Virus Disease symptoms Patient denies exposure to infectious person. Patient denies travel to an Ebola-affected area in the 21 days before illness onset. No symptoms or risks identified at this time. Initial Sepsis Screen: Does the patient meet any 2 criteria? No. Patient's initial sepsis screen is negative. Does the patient have a suspected source of infection? Yes: Acute abdominal pain. Risk Assessment: Do you want to hurt yourself or someone else? Patient reports no desire to harm self or others. Onset of symptoms was July 21, 2023. 22:06 Method Of Arrival: Ambulatory vc1 22:06 Acuity: ESTEFANI 3 1 Triage Assessment: 22:09 General: Appears in no apparent distress. uncomfortable, ill, Behavior is cooperative, vc1 appropriate for age, crying. Pain: Complains of pain in right lower quadrant Pain does not radiate. Pain currently is 10 out of 10 on a pain scale. Quality of pain is described as sharp, Pain began 5 days. EENT: No deficits noted. No signs and/or symptoms were reported regarding the EENT system. Neuro: Level of Consciousness is awake, alert, obeys commands, Oriented to person, place, time, situation, Appropriate for age. Cardiovascular: No deficits noted. Respiratory: No deficits noted. GI: Reports lower abdominal pain, nausea, vomiting. : No deficits noted. No signs and/or symptoms were reported regarding the genitourinary system. Derm: No deficits noted. No signs and/or symptoms reported regarding the dermatologic system. Musculoskeletal: No deficits noted. No signs and/or symptoms reported regarding the musculoskeletal system. 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 - Social history:: Smoking status: Patient denies any tobacco usage or history of. Screenin:10 Abuse screen: Denies threats or abuse. Nutritional screening: No deficits noted. vc1 Tuberculosis screening: No symptoms or risk factors identified. 22:59 [facility] ED Fall Risk Assessment (Adult) History of falling in the last 3 months, rv including since admission No falls in past 3 months (0 pts) Score/Fall Risk Level 0 - 2 = Low Risk Oriented to surroundings, Maintained a safe environment, Educated pt \T\ family on fall prevention, incl call for assistance when getting out of bed, Assessed \T\ reinforced patient's understanding of fall precautions, Provided non-skid footwear, Hourly rounding (assess needs \T\ fall precautionary measures) done, Used ambulatory aids as needed (educated on \T\ assisted with), Used gait belt as appropriate. Assessment: 22:58 General: Appears uncomfortable, Behavior is calm, cooperative. Pain: Complains of pain rv in abdomen. Neuro: Level of Consciousness is awake, alert, obeys commands, Oriented to person, place, time, situation. Cardiovascular: Capillary refill < 3 seconds Patient's skin is warm and dry. Respiratory: Airway is patent Respiratory effort is even, unlabored, Breath sounds are clear bilaterally. GI: Bowel sounds present X 4 quads. Abd is soft X 4 quads Abdomen is tender to palpation in right upper quadrant and right lower quadrant. 23:49 Reassessment: Patient appears in no apparent distress at this time. Patient and/or jb4 family updated on plan of care and expected duration. Pain level reassessed. Patient is alert, oriented x 3, equal unlabored respirations, skin warm/dry/pink. 07/22 00:47 Reassessment: Patient appears in no apparent distress at this time. Patient and/or jb4 family updated on plan of care and expected duration. Pain level reassessed. Patient is alert, oriented x 3, equal unlabored respirations, skin warm/dry/pink. Vital Signs: 07/21 22:06 Weight 86.18 kg; Height 5 ft. 5 in. ; Pain 06/20; vc1 22:12 BP 158 / 98; Pulse 72; Resp 17; Temp 98.2; Pulse Ox 100% ; vc1 23:49 BP 126 / 79; Pulse 63; Resp 16; Pulse Ox 97% on R/A; jb4 07/22 04:51 BP 121 / 76; Pulse 68; Resp 16; Temp 98; Pulse Ox 99% on R/A; rv 07/21 22:06 Body Mass Index 31.62 (86.18 kg, 165.1 cm) vc1 07/21 22:06 Pain Scale: Adult vc1 [place] Coma Score: 04:51 Eye Response: spontaneous(4). Motor Response: obeys commands(6). Verbal Response: rv oriented(5). Total: 15. ED Course: 07/21 21:00 Patient arrived in ED. es 21:00 Galileo Cabral MD is Private Physician. es 21:35 Jerry Levin [facility]. cp 21:35 Rosalie Georges is Attending Physician. cp 22:08 Triage completed. vc1 22:09 Arm band placed on left wrist. vc1 22:26 Pastor Bland RN is Primary Nurse. rv 22:30 Inserted saline lock: 20 gauge in right antecubital area, using aseptic technique. rv Blood collected. 22:59 Patient has correct armband on for positive identification. Client placed on continuous rv cardiac and pulse oximetry monitoring. NIBP monitoring applied. 22:59 No provider procedures requiring assistance completed. rv 07/22 00:37 CT Abd/Pelvis - IV Contrast Only In Process Unspecified. EDMS 01:55 Justin Goode MD is Hospitalizing Provider. cp 04:51 Patient admitted, IV remains in place. rv Administered Medications: 07/21 22:56 Drug: Famotidine IVP 20 mg IVP once; dilute with 10 mL 0.9% NaCl; give over 2 minutes rv Route: IVP; Site: right antecubital; 07/22 02:54 Follow up: Response: No adverse reaction rv 07/21 22:56 Drug: morphine IVP or IV 4 mg IVP once over 4 mins Route: IVP; Infused Over: 4 mins; rv Site: right antecubital; 07/22 02:53 Follow up: Response: No adverse reaction rv 07/21 22:57 Drug: Ondansetron IVP 4 mg IVP once; over 2 minutes Route: IVP; Site: right antecubital;rv 07/22 02:54 Follow up: Response: No adverse reaction rv 01:56 Drug: Piperacillin-Tazobactam IVPB 3.375 grams IVPB once over 60 mins; (mix in NS 100 rv mL) Route: IVPB; Infused Over: 60 mins; Site: right antecubital; 02:54 Follow up: Response: No adverse reaction; IV Status: Completed infusion; IV Intake: rv 100ml 01:56 Drug: Ondansetron IVP 4 mg IVP once; over 2 minutes Route: IVP; Site: right antecubital;rv 02:54 Follow up: Response: No adverse reaction rv Medication: 07/21 22:11 VIS not applicable for this client. vc1 Intake: 07/22 02:54 IV: 100ml; Total: 100ml. rv Outcome: 01:56 Decision to Hospitalize by Provider. cp 04:52 Admitted to Tele accompanied by nurse, via wheelchair, room 412, with chart, Report rv called to SHAQUILLE CONNORS 04:52 Condition: good 04:52 Instructed on the need for admit, 04:52 Patient left the ED. rv Signatures: Dispatcher [employer] Rupali Chavez Corey, PA PA cp Chi Denton RN RN jb4 Pastor Bland RN RN rv Yuliya Linares RN RN vc1
[2023-07-22] MEDS ORDERED: NA CHLORIDE 0.9% 100 ML ONE (02:04)
[2023-07-22] MEDS ORDERED: ONDANSETRON 4 MG/2 ML VIAL ONE ×3 (02:04→13:52)
[2023-07-22] MEDS ORDERED: PIPERACIL/TAZO 3.375 GM VIAL IV ONE (02:04)
--- NOTE | 2023-07-22 04:11 | P.HP ---
Certification for Inpatient With expected LOS: >2 Midnights Patient will require the following post-hospital care: None Practitioner: I am a practitioner with admitting privileges, knowledge of patient current condition, hospital course, and medical plan of care. Services: Services provided to patient in accordance with Admission requirements found in Title 42 Section 412.3 of the Code of Federal Regulations <Bia Arriaza - Last Filed: 07/22/23 04:05> Patient History Date of Service: 07/22/23 Primary Care Provider: Dr. Cabral Reason for admission: Cholecystitis, Abdominal pain, Elevated liver enzymes Home medications list reviewed: Yes (trelegy inhaler) - Past Medical/Surgical History Has patient received pneumonia vaccine in the past: No Diabetic: No -: Asthma -: PCOS -: Uterine poly removal -: gastric sleeve 2019 -: abscess to left hand -: Breast augmentation/tummy tuck 2022 Psychosocial/ Personal History: Lives at home with her - Family History Family History: Reviewed- Non-Contributory - Social History Smoking Status: Never smoker Alcohol use: No CD- Drugs: No Caffeine use: Yes Place of Residence: Home <Bia Arriaza Last Filed: 07/22/23 04:05> Date of Service: 07/22/23 - Family History Mother -: Lung disease, Diabetes, Other (see notes) Notes: hypothyroidism Father -: Other (see notes) Notes: no health issues <Justin Goode - Last Filed: 07/22/23 14:35> Review of Systems General: Fever Eyes: Unremarkable ENT: Unremarkable Respiratory: Unremarkable Gastrointestinal: Nausea, Vomiting, Abdominal Pain Genitourinary: Unremarkable Musculoskeletal: Unremarkable Integumentary: Unremarkable Neurological: Unremarkable Lymphatics: Unremarkable <Bia Arriaza - Last Filed: 07/22/23 04:05> Physical Examination - Vital Signs Blood Pressure: 126/79 Pulse: 63 Respirations: 16 Pulse Ox (%): 97 - Physical Exam General: Alert, Oriented x3, Other (uncomfortable) HEENT: Atraumatic, Normocephalic, PERRLA Neck: Supple, 2+ carotid pulse no bruit Respiratory: Clear to auscultation bilaterally, Normal air movement Cardiovascular: No edema, Normal pulses, Regular rate/rhythm, Normal S1 S2 Capillary refill: <2 Seconds Gastrointestinal: Normal bowel sounds, Non-distended, Tenderness (RUQ, back pain ) Musculoskeletal: No clubbing, No swelling, No contractures Integumentary: No rashes, No breakdown Lymphatics: No axilla or inguinal lymphadenopathy External genitalia: Deferred Rectal: Deferred - Studies Laboratory Data (last 24 hrs) 07/21/23 07/21/23 22:35 22:35 WBC 6.50 Hgb 12.9 Hct 38.7 Plt Count 218 Sodium 139 Potassium 3.5 BUN 11 Creatinine 0.79 Glucose 89 Total Bilirubin 0.3 AST 46 H ALT 151 H Alkaline Phosphatase 80 Lipase 37 <Bia Arriaza - Last Filed: 07/22/23 04:05> - Studies Laboratory Data (last 24 hrs) 07/21/23 07/21/23 22:35 22:35 WBC 6.50 Hgb 12.9 Hct 38.7 Plt Count 218 Sodium 139 Potassium 3.5 BUN 11 Creatinine 0.79 Glucose 89 Total Bilirubin 0.3 AST 46 H ALT 151 H Alkaline Phosphatase 80 Lipase 37 <Justin Goode - Last Filed: 07/22/23 14:35> Assessment and Plan - Problems (Diagnosis) (1) Abdominal pain Current Visit: Yes Status: Acute Plan: NPO Morphine 4mg q 4h prn pain serial labs NS at 125ml/hr Qualifiers: Abdominal location: right upper quadrant Qualified Code(s): R10.11 - Right upper quadrant pain (2) Cholecystitis Current Visit: Yes Status: Acute Plan: NPO Consult Dr. Ralf Clemente 3.375gm IV q 12h (3) Elevated liver enzymes Current Visit: Yes Status: Acute Plan: Consult Dr. Anna trend LFTs Discharge Plan: Home Plan to discharge in: 72 Hours - Advance Directives Does patient have a Living Will: No Does patient have a Durable POA for Healthcare: No - Code Status/Comfort Care Code Status Assessed: Yes Code Status: Full Code Time Spent Managing Pts Care (In Minutes): 45 <Bia Arriaza - Last Filed: 07/22/23 04:05> Physician Review Additional Text: Patient seen and examined on rounds this morning. Plan of care discussed with Bia. Agree with plan as noted above with the following additions/corrections: Pain improving, but brine tank tender on exam, +nausea Medication helping Reports approximately 3000 mg Tylenol daily over the last week for pain Dr. Arambula consulted Plan for OR, lap cathie today <Justin Goode - Last Filed: 07/22/23 14:35>
[2023-07-22 05:24] VITALS: BMI 31.6
[2023-07-22] MEDS ORDERED: NA CHLORIDE 0.9% 1,000 ML ONE (05:41)
[2023-07-22] MEDS: MORPHINE 4 MG/ML SYR IV PRN ×2 (05:47→22:09)
[2023-07-22] MEDS: NA CHLORIDE 0.9% 1,000 ML IV SCH ×3 (05:47→22:15)
[2023-07-22] MEDS: ONDANSETRON 4 MG (ODT) TAB PO PRN ×2 (05:48→11:30)
[2023-07-22] MEDS: PIPER TAZO 3.375 GM in NA CHLORIDE 0.9% 100 ML IV SCH ×2 (08:32→17:56)
[2023-07-22] MEDS: Ringers Lactate 1,000 ML IV ONE ×2 (12:00→14:19)
--- NOTE | 2023-07-22 12:19 | CON ---
Date of Consultation: 07/22/2023 Diagnosis: Epigastric right upper quadrant pain, acute cholecystitis, symptomatic cholelithiasis, an d increased LFTs. History Of Present Illness: This is the case of a female, who came to us with an epigastric right up per quadrant pain radiating to the back associated with nausea and vomiting and bloating. It has bee n like that for about 2 weeks. She has been going through multiple ERs and then advised to see the s omari, but she has not seen him yet, actually his appointment is not until a few weeks from now. Victoria gutierrez not take it anymore last night, so she decided to come to the ER, admitted for acute cholecystiti s, symptomatic cholelithiasis. Surgical consult was obtained for cholecystectomy. Past Medical History: Asthma, uterine fibroid. Past Surgical History: Include uterine fibroid removal, gastric sleeve 2019, abscess in the left [place] d, breast augmentation and abdominoplasty in 2022 with a midline incision in place. Social History: She does not smoke. She does not drink alcohol. Medication: Asthma medication. Review of Systems: No shortness of breath. No chest pain. She still have epigastric pain as HPI documented. No jaundi ce. The patient has used Tylenol a lot, so the primary doctor was also the importance of making sure that it is only used as really absolutely needed and she also should see her gastroentero logist also as an outpatient to make sure AST and ALT come back to normal. Total bili and alkaline p hosphatase are normal at this time. Physical Examination: General: Patient is awake, alert. Oriented x3. HEENT: Pupils are equal and reactive. Anicteric. Neck: Supple. Chest: Clear. Heart: S1, S2. Abdomen: Epigastric right upper quadrant pain with Pretty sign positive. The patient has a midline abdominal incision that she claimed is from her abdominoplasty. Breasts: Deferred. Rectal: Deferred. Pelvis: Deferred. Extremities: Good capillary refill. Laboratory Data: Blood work shows WBC count of 6.5, hemoglobin of 12.9, and platelets of 218. Potas sium is 3.5, creatinine is 0.79, total bilirubin of 0.3, alkaline phosphatase 80, AST 46, ALT 151, li pase 37. CAT scan of the abdomen and pelvis interpreted by radiologist as distended gallbladder with pericholecystic fluid consistent with acute cholecystitis. Ultrasound not available at this time. Assessment: This is a female, who came to us with epigastric right upper quadrant pain. She states she went to recently. Had an ultrasound showing gallstones, came to the ER and shows epig astric pain with Pretty sign positive and distended gallbladder with the pericholecystic fluid consis tent with acute cholecystitis. She understands the options of laparoscopic possible open cholecystec cesar. Benefits, alternatives, and risks including, but not limited to, infection, bleeding, damage t o adjacent structures, anesthesia complication, choledocholithiasis, bile leak, pancreatitis, ID, and even . She also understands this may not relieve any symptoms. She might need more than one s urgical intervention. She also understands the importance of following up with her gastroenterologis t in the future. Although bilirubin and alkaline phosphatase at this time is normal, we are looking for more parenchymal disease and since she has heavy use of Tylenol, it is important that she follow up with the right of way man. RADHA Voice ID: [id number] Report ID: [id number]
[2023-07-22] MEDS ORDERED: FENTANYL CITR 100 MCG/2 ML ONE (13:51)
[2023-07-22] MEDS ORDERED: MIDAZOLAM HCL 2 MG/2 ML INJ ONE (13:51)
[2023-07-22] MEDS ORDERED: propofoL 200 MG/20 ML VIAL IV ONE (13:51)
[2023-07-22] MEDS ORDERED: NEOSTIGMINE 1 MG/ML -10 ML VIAL ONE (13:52)
[2023-07-22] MEDS ORDERED: GLYCOPYRROLATE 0.2 MG/ML SYR ONE (13:52)
[2023-07-22] MEDS ORDERED: ROCURONIUM 50 MG/5 ML VIAL IV ONE (13:53)
[2023-07-22] MEDS ORDERED: dexAMETHasone 4 MG/ML VIAL ONE (13:53)
[2023-07-22] MEDS ORDERED: LIDOCAINE 1% MPF 5 ML VIAL ONE (13:54)
[2023-07-22] MEDS ORDERED: KETOROLAC 30 MG/ML INJ ONE (14:26)
--- NOTE | 2023-07-22 14:47 | P.BOP ---
Preoperative diagnosis: acute abd pain, acute cholecystitis Postoperative diagnosis: same, intrabdominal adhesions Primary procedure: Laparoscopic cholecystecomy Secondary procedure: Laparoscopic lysis of adhesions Field Representative/Health Education: Lou Paulson) Estimated blood loss: <10cc Specimen: gb Findings: as above Anesthesia: General Complications: None Transferred to: Recovery Room Condition: Good
[2023-07-22] MEDS ORDERED: Mastisol Adhesive Liq ONE (14:59)
[2023-07-22] MEDS ORDERED: HYDROCODONE/APAP 5/325 MG TAB PO PRN (15:00)
[2023-07-22] MEDS: HYDROMORPHONE HCL 1 MG/ML INJ ONE ×2 (15:20→15:30)
[2023-07-22] MEDS ORDERED: METOCLOPRAMIDE 10 MG/2mL INJ ONE (15:29)
[2023-07-22] MEDS ORDERED: MEPERIDINE HCL 25 MG/ML SYR ONE (15:51)
--- NOTE | 2023-07-22 17:21 | RAD REPORT ---
EXAM DESCRIPTION: CT - Abdomen Pelvis W Contrast - 07/22/2023 6:08 am CLINICAL HISTORY: RIGHT SIDED ABD PAIN. COMPARISON: None. TECHNIQUE: CT of the abdomen and pelvis was performed following intravenous administration of iodina greg contrast. Oral contrast was not administered. Axial, coronal, and sagittal soft tissue window rec onstructions were created and sent to PACS. This exam was performed according to our departmental dose-optimization program, which includes autom ated exposure control, adjustment of the mA and/or kV according to patient size and/or use of iterati ve reconstruction technique. FINDINGS: Thoracic: No significant abnormality. Hepatobiliary: No concerning hepatic lesion identified. The portal veins are patent. Distended appear ance of the gallbladder with trace surrounding fat stranding. No biliary ductal dilatation. Pancreas: Unremarkable. Spleen: Unremarkable. Gastrointestinal: Possible tiny sliding-type hiatal hernia. Gastric sleeve surgery. No evidence of brandin wel obstruction or perienteric inflammation. The appendix is normal. Adrenals: No abnormality identified in either adrenal gland. Renal: No concerning parenchymal abnormality in either kidney. No hydronephrosis or urolithiasis. Bladder/Reproductive: Unremarkable appearance of the urinary bladder by CT technique. Unremarkable CT appearance of the uterus and ovaries. Vascular/Lymphatics: No lymphadenopathy identified by CT size criteria. Abdominal aorta is normal in caliber. Musculoskeletal: No concerning osseous lesion identified. Partially imaged bilateral breast implants Fluid / peritoneum: Scant pelvic free fluid. No free intraperitoneal air identified. IMPRESSION Distended appearance of the gallbladder with trace surrounding fat stranding. Correlate f or acute cholecystitis. Electronically signed by: Haylie Sheth MD 07/22/2023 12:55 AM MEDICAL TECHNOLOGIST GENERALIST Due to temporary technical issues with the PACS/Fluency reporting system, reports are being signed by the in house radiologists without review as a courtesy to insure prompt reporting. The interpreting radiologist is fully responsible for the content of the report.
--- NOTE | 2023-07-22 20:22 | OP ---
Date of Procedure: 07/22/2023 Surgeon: Guru Arambula MD Granite Cutter: Lou Brar. Preoperative Diagnoses: Acute abdominal pain, acute cholecystitis. Postoperative Diagnoses: Acute abdominal pain, acute cholecystitis plus intraabdominal adhesions. Procedure: Laparoscopic cholecystectomy, laparoscopic lysis of abdominal adhesions. Estimated Blood Loss: Less than 10 cc. Specimen: Gallbladder. Anesthesia: General plus local. Finding: Inflamed distended gallbladder with gallbladder wall thickening and pericholecystic fluid. Indication: This is the case of a 33-year-old patient who came to us with acute abdominal pain, intr actable right upper quadrant abdominal pain, diagnosed with acute cholecystitis. She also had an ult rasound done previously in another institution in [place] that she claims she has gallstones. Th e benefits, alternatives, and risks of laparoscopic possible open cholecystectomy are fully explained , which include, but not limited to, infection, bleeding, damage to adjacent structures, anesthesia c omplication, choledocholithiasis, bile leak, pancreatitis, PR, and even . She also understands this may not relieve any symptoms. She might need more than one surgical intervention. She understo od, signed a consent. The patient has multiple abdominal surgeries. There is a midline incision in the abdomen. There is previous abdominoplasty repair. She understands the chance of scars. Description Of Procedure: As the patient wanted surgery during this admission, the patient was broug ht to the operating room, placed in supine position. Anesthesia was done without complication. Abdo new area was prepped and draped in sterile fashion. Marcaine 0.5% was injected for local anestheti c followed by sharp incision of the skin in the supraumbilical region. Patient has once again a midl ine incision from xiphoid all the way down to the lower abdomen and also has a circumferential incisi on on the umbilical region. Those for multiples surgical interventions. An incision was made in the supraumbilical region. Incision was carried down to fascia, which was opened under direct vision. Peritoneum was encountered, opened under direct vision. Vicryl #1 placed inside the fascia. Argenis trocar was carefully introduced. Pneumoperitoneum was obtained. I placed 3 more trocars, 5 mm each one of them in epigastric, right upper quadrant area under direct visualization. This allowed me to put a grasper in the fundus of the gallbladder, another grasper in the infundibulum, retracting the g allbladder in the inferolateral fashion exposing the triangle of Calot and obtaining critical view. Cystic duct and cystic artery were clearly isolated, freed circumferentially and a connection between those and the gallbladder were clearly identified. I proceeded to ligate those by using at least 3 clips proximal, 1 clip distal, ligation in the middle. Same was done with the cystic artery. I have to mention to get to the gallbladder, I have to go through extensive adhesions from the omentum to t he gallbladder. Etiology of that is unknown. We have to use a LigaSure to be able to go through tho se adhesions probably from chronic cholecystitis. I do not see any other reasons for that. Obviousl y we have no previous colonoscopies in this patient, but I do not see any extraluminal masses. When those adhesions were removed, we were able to put a grasper in the fundus of the gallbladder, retract ed the gallbladder in the inferolateral fashion exposing the triangle of Calot, obtaining critical vi ew. Cystic duct and cystic artery were clearly isolated, freed circumferentially and a connection be tween those and the gallbladder were clearly identified. I proceeded to ligate those by using at jae st 3 clips proximal, 1 clip distal, ligation in middle. Same was done with the cystic artery. No bi le leak. No bleeding. The gallbladder was removed from the liver using Bovie cauterizer and removed from abdominal cavity using EndoCatch through umbilical incision. Area was inspected once again, no t only the area of the lysis of adhesions, but also the area of the cholecystectomy. No bile leak. No bleeding. At that moment, I proceeded to remove the trocars under direct vision. Deflated the pn eumoperitoneum. Closed the fascia with #1 Vicryl, irrigated subcutaneous tissue, closed that with 3- 0 chromic and the skin in subcuticular fashion with 3-0 chromic and Steri-Strips on top. Sponge coun ts and instrument counts were correct. Patient tolerated the procedure well. Patient sent to [facility] in stable condition. If she goes home this afternoon or after dinner, she was advised not to do h eavy lifting. Follow up in my office in 1 week. Call for appointment at [phone], be compliance wit h medication given to her. No heavy lifting, no more than 20 pounds. Keep the area dry for 48 hours , then may shower. Keep Steri-Strips intact. CESAR/CLARK Voice ID: [id number] Report ID: [id number]
[2023-07-23] MEDS: PIPER TAZO 3.375 GM in NA CHLORIDE 0.9% 100 ML IV SCH ×2 (00:24→07:40)
[2023-07-23 04:58] VITALS: BP 103/63; TEMP 97.2
[2023-07-23 06:47] LABS: Absolute Lymphocytes (CBC) 1.2 K/uL (0.7-4.9); Lymphocytes % 14.2 % (15.3-44.8); MPV 7.5 fL (7.6-11.3); Platelets 186 thou/uL (152-406); RBC Red Blood Cell Count 3.63 M/uL (3.86-4.86)
[2023-07-23] MEDS: NA CHLORIDE 0.9% 1,000 ML IV SCH (06:53)
[2023-07-23 07:02] LABS: Albumin 2.6 g/dL (3.4-5.0); Bilirubin Direct 0.1 mg/dL (0-0.2); Bilirubin Indirect, Calculated 0.2 mg/dL (0.2-0.8); Bilirubin Total 0.3 mg/dL (0.2-1.0); Magnesium 2.7 mg/dL (1.6-2.4); Potassium 3.7 mEq/L (3.5-5.1); Protein, Total 6.1 g/dL (6.4-8.2)
--- NOTE | 2023-07-23 08:22 | P.DS ---
Admission Date: 07/22/23 Discharge Date: 07/23/23 Primary Care Provider: Dr. Cabral Disposition: ROUTINE DISCHARGE Discharge Condition: GOOD Reason for Admission: Cholecystitis, Abdominal pain, Elevated liver enzymes Consultations: General surgery - Dr. Arambula GI - Dr. Anna Brief History of Present Illness: Ms. Paz presented to the ED with right upper quadrant abdominal pain that radiated to her upper right back. + N/V. Low grade fever. Found to have cholecystitis in the ED. Dr. Arambual consulted per ED provider. Hospital Course: Problem List: Acute cholecystitis, now s/p lap cathie and lysis of adhesions (07/22) Elevated LFTs Patient presented with worsening RUQ pain, nausea, vomiting. CT abdomen findings consistent with Acute cholecystitis. General surgery was consulted. Patient was taken to OR with Dr. Arambula for laparoscopic cholecystectomy and lysis of adhesions on 07/22. Patient was monitored post operatively, feeling better, and deemed stable for discharge. Patient was tolerating diet on day of discharge without issue. Patient received IV zosyn while hospitalized and is to complete 7 more days of Augmentin on discharge. LFTs were noted to be mildly elevated on admission. Patient reports taking ~3000mg/day of acetaminophen for about a week recently. Suspect elevated LFTs secondary to acute cholecystitis, possibly impacted by acetaminophen use. 07/23 LFTs were noted to be slightly worse; to be expected with recent surgery. Discussed with Dr. Anna, recommends close follow up at GI clinic and repeat blood work within ~1 week to monitor LFTs. Medications: Augmentin x 7 days [place] Follow up: PCP 3-[address] Arambula in ~1-2 weeks GI clinic 2-4 weeks Keep surgical area intact for 48h then may remove outer dressing and shower. Keep sterile strips intact Physical Exam: GEN: Alert, oriented, NAD HEENT: Normal conjunctiva, sclera anicteric CV: Regular rate and rhythm, no edema Pulm: Nonlabored respirations on room air, clear bilaterally ABD: Soft, mild abdominal discomfort, dressing in place c/d/i Neuro: Normal speech, normal affect Vital Signs/Physical Exam: Temp Pulse Resp BP Pulse Ox 97.2 F 61 20 103/63 96 07/23/23 04:00 07/23/23 04:00 07/23/23 06:53 07/23/23 04:00 07/23/23 06:53 Laboratory Data at Discharge: WBC 8.30 thou/uL (4.3-10.9) 07/23/23 06:05 Hgb 11.6 g/dL (12.0-15.0) L 07/23/23 06:05 Hct 33.0 % (36.0-45.0) L 07/23/23 06:05 Plt Count 186 thou/uL (152-406) 07/23/23 06:05 Sodium 141 mEq/L (136-145) 07/23/23 06:05 Potassium 3.7 mEq/L (3.5-5.1) 07/23/23 06:05 BUN 9 mg/dL (7-18) 07/23/23 06:05 Creatinine 0.82 mg/dL (0.55-1.02) 07/23/23 06:05 Glucose 99 mg/dL (74-106) 07/23/23 06:05 Magnesium 2.7 mg/dL (1.6-2.4) H 07/23/23 06:05 Total Bilirubin 0.3 mg/dL (0.2-1.0) 07/23/23 06:05 AST 93 U/L (15-37) H 07/23/23 06:05 ALT 215 U/L (13-56) H 07/23/23 06:05 Alkaline Phosphatase 88 U/L (45-117) 07/23/23 06:05 Lipase 27 U/L (13-75) 07/23/23 06:05 Home Medications: Amox/Clavulanate [Augmentin 875-125 Tab] 1 each PO BID 7 Days #14 tab 07/22/23 Biotin 1 tab PO DAILY 07/22/23 Fluticasone/Umeclidin/Vilanter [Trelegy Ellipta 100-62.5-25] 1 puff PO DAILY 07/22/23 Hydrocodone/Acetaminophen [Hydrocodon-Acetaminophen 5-325] 1 tab PO Q8H PRN #15 tab 07/22/23 Pediatric Multivitamin No.101 [Gummy] 1 tab PO DAILY 07/22/23 Zinc Gluconate [Zinc] 1 tab PO DAILY 07/22/23 New Medications: Amox/Clavulanate [Augmentin 875-125 Tab] 1 each PO BID 7 Days #14 tab Hydrocodone/Acetaminophen [Hydrocodon-Acetaminophen 5-325] 1 tab PO Q8H PRN #15 tab PRN Reason: Pain Scale 8-10 (Severe) Physician Discharge Instructions: PROBLEM: Cholecystectomy GOAL: Clear understanding of disease process INSTRUCTIONS: Patient presented with worsening RUQ pain, nausea, vomiting. CT abdomen findings consistent with Acute cholecystitis. General surgery was consulted. Patient was taken to OR with Dr. Arambula for laparoscopic cholecystectomy and lysis of adhesions on 07/22. Patient was monitored post operatively, feeling better, and deemed stable for discharge. Patient was tolerating diet on day of discharge without issue. Patient received IV zosyn while hospitalized and is to complete 7 more days of Augmentin on discharge. LFTs were noted to be mildly elevated on admission. Patient reports taking ~3000mg/day of acetaminophen for about a week recently. Suspect elevated LFTs secondary to acute cholecystitis, possibly impacted by acetaminophen use. 07/23 LFTs were noted to be slightly worse; to be expected with recent surgery. Discussed with Dr. Anna, recommends close follow up at GI clinic and repeat blood work within ~1 week to monitor LFTs. Medications: Augmentin x 7 days [place] Follow up: PCP 3-[address] Arambula in ~1-2 weeks GI clinic 2-4 weeks Keep surgical area intact for 48h then may remove outer dressing and shower. Keep sterile strips intact Diet: as tolerated, soft Activity: No lifting more than 10 lbs DME DME: Date Ordered: Name of Company: [employer] Services Needed: Name of Company: Date or Referral: IMMUNIZATION Influenza Vaccine Indicated: No Influenza Vaccine Given: Date Given: Pneumonia Vaccine Indicated: No Pneumonia Vaccine Given: Date Given: Activity: No lifting more than 10 lbs Followup: Guru Arambula MD [ACTIVE - CAN ADMIT] - 1 Week Galileo Cabral MD [Primary Care Provider] - Time spent managing pt's care (in minutes): 45
--- NOTE | 2023-07-23 08:34 | P.PN ---
Subjective Date of Service: 07/23/23 Primary Care Provider: Dr. Cabral Chief Complaint: Cholecystitis, Abdominal pain, Elevated liver enzymes Subjective: Improving (She reports some post-op pain, but up eating breakfast. In good spirits and energetic.) Review of Systems 10-point ROS is otherwise unremarkable Gastrointestinal: Abdominal Pain (Post-op) Physical Examination - Vital Signs Temperature: 97.2 F Blood Pressure: 103/63 Pulse: 61 Respirations: 20 Pulse Ox (%): 96 - Physical Exam General: Alert, In no apparent distress, Oriented x3, Cooperative HEENT: Atraumatic, Normocephalic, PERRLA Neck: Supple Respiratory: Normal air movement Cardiovascular: Normal pulses Gastrointestinal: Non-distended, No rebound, Tenderness (at surgical sites ) Neurological: Normal speech, Normal strength at 5/5 x4 extr Assessment And Plan - Current Problems (Diagnosis) (1) Cholelithiasis Current Visit: Yes Status: Acute (2) RUQ abdominal pain Current Visit: Yes Status: Acute (3) Epigastric abdominal pain Current Visit: Yes Status: Acute (4) Nausea & vomiting Current Visit: Yes Status: Acute (5) Cholecystitis Current Visit: Yes Status: Acute (6) Elevated liver enzymes Current Visit: Yes Status: Acute Comment: Slight increase in AST/ALT but alk phos / total bilirubin normal at 88/0.3 - Plan REC: 1) prn pain meds and anti-emetics 2) diet & discharge as per surgery 3) GI clinic f/u
[2023-07-23 09:03] VITALS: O2SAT 99
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
== END 2023-07-23 10:15 | disposition home or self-care (01) | DRG 416 ==
LOC: ER 20:56 → ERHOLD 07-22 03:34 → 4TH 07-22 04:55
PROVIDERS: ADMIT Hospitalist; ATTEND Hospitalist
PROC: 0DNU0ZZ Release Omentum, Open Approach (ICD-10-PCS; 2023-07-22)
PROC: 0FT40ZZ Resection of Gallbladder, Open Approach (ICD-10-PCS; principal; 2023-07-22 12:30)
DX: K80.00 Calculus of gallbladder with acute cholecystitis without obstruction (principal); K82.8 Other specified diseases of gallbladder; J45.909 Unspecified asthma, uncomplicated; E28.2 Polycystic ovarian syndrome; R74.01 Elevation of levels of liver transaminase levels; R79.89 Other specified abnormal findings of blood chemistry; Z98.84 Bariatric surgery status
CPT/HCPCS: 36415; 74177; 80048; 80053; 80076; 81001; 81025; 83690; 83735; 85025; 88304; 94010; 96365; 96375; 99285; J1100; J1170; J2001; J2175; J2250; J2405; J2543; J2704; J2710; J2765; J3010; J7030; J7120; Q0162; Q9967

== ENCOUNTER 2024-10-11 23:35 | Emergency (ER) | payer BC ==
[2024-10-12] MEDS ORDERED: NA CHLORIDE 0.9% 1,000 ML ONE (01:51)
[2024-10-12] MEDS ORDERED: ONDANSETRON 4 MG/2 ML VIAL ONE (01:51)
[2024-10-12] MEDS ORDERED: MORPHINE 4 MG/ML SYR ONE (01:51)
[2024-10-12] MEDS ORDERED: METOCLOPRAMIDE 10 MG/2mL INJ ONE (02:10)
[2024-10-12] MEDS ORDERED: NA CHLORIDE 0.9% 100 ML ONE (02:10)
[2024-10-12 02:27] LABS: Absolute Eosinophils 0.1 K/uL (0-0.5); Absolute Lymphocytes (CBC) 2.6 K/uL (0.7-4.9); Absolute Monocytes 0.5 K/uL (0.1-1.3); Absolute Neutrophil 3.8 K/uL (1.8-8.0); Basophils % 0.5 % (0-1.3); Hematocrit 38.3 % (36.0-45.0); Hemoglobin 13.4 g/dL (12.0-15.0); Lymphocytes % 36.8 % (15.3-44.8); MCH 31.5 pg (27.0-35.0); MCHC 35.1 g/dL (32.0-36.0); MCV 89.9 fL (80-100); Monocytes % 7.3 % (3.3-12.3); Neutrophils % 54.4 % (41.7-73.7); Platelets 229 thou/uL (152-406); RBC Red Blood Cell Count 4.26 M/uL (3.86-4.86); Red Cell Distribution Width 13.4 % (12.1-15.2)
[2024-10-12 02:28] LABS: Albumin 3.7 g/dL (3.4-5.0); Albumin/Globulin Ratio 0.9 (1.1-1.8); Anion Gap 10.6 mEq/L (5.0-15.0); Bilirubin Total 0.3 mg/dL (0.2-1.0); Globulin 4.1 g/dL (2.3-3.5); Potassium 3.6 mEq/L (3.5-5.1); Protein, Total 7.8 g/dL (6.4-8.2)
--- NOTE | 2024-10-12 04:08 | EDPHYS ---
Physician Documentation [facility] Name: Olimpia Paz Age: 34 yrs Sex: Female : 1990 Arrival Date: 10/11/2024 Time: 23:35 Bed 6 Private MD: Galileo Cabral ED Physician Murtaza Braun HPI: 10/12 03:57 This 34 yrs old Female presents to ER via Ambulatory with complaints of bo1 Abdominal Pain, Nausea/Vomiting. 03:57 The patient presents to the emergency department with nausea, vomiting, abdominal pain. bo1 Onset: The symptoms/episode began/occurred gradually, Off/on since the gastric sleeve surgery and dx of hiatal hernia. Possible causes: Was told her sxs were due to reflux. Severity of symptoms: At their worst the symptoms were mild. Constipation for 4 days. 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 - Infectious Disease History:: Denies. - Social history:: Smoking status: Patient denies any tobacco usage or history of. ROS: 10/12 04:00 Constitutional: Negative for fever, chills, and weight loss bo1 Cardiovascular: Negative for chest pain, Respiratory: Negative for cough, shortness of breath, Abdomen/GI: Positive for abdominal pain, nausea and vomiting, Abdomen/GI: Positive for constipation, Back: Negative for pain at rest, pain with movement, Skin: Negative for rash, All other systems are negative, Exam: 04:02 Constitutional: This is a well developed, well nourished patient who is awake, alert, bo1 and in no acute distress. 04:02 Constitutional: The patient appears in no acute distress, alert, awake, comfortable, non-toxic, 04:02 Eyes: Sclera: icterus, is not appreciated, 04:02 Neck: External neck: is normal, no acute changes, 04:02 Cardiovascular: Rate: Rhythm: regular, Pulses: no pulse deficits are appreciated, 04:02 Respiratory: the patient does not display signs of respiratory distress, Respirations: normal, no acute changes, Breath sounds: are clear throughout, 04:02 Abdomen/GI: Bowel sounds: normal, Palpation: abdomen is soft and non-tender, rebound tenderness, is not appreciated, 04:02 Skin: no rash present. Vital Signs: 10/11 23:56 BP 129 / 91; Pulse 86; Resp 18; Temp 98.5; Pulse Ox 99% on R/A; Weight 86.18 kg; Height al5 5 ft. 5 in. ; Pain 10/10; 10/12 00:00 BP 129 / 91; Pulse 86; Resp 18; Temp 98.5; Pulse Ox 99% ; mm11 02:30 BP 126 / 90; Pulse 70; Resp 18; Pulse Ox 100% ; vc1 03:30 BP 139 / 89; Pulse 72; Resp 18; Pulse Ox 100% ; vc1 04:29 BP 120 / 83; Pulse 78; Resp 16; Pulse Ox 100% ; vc1 10/11 23:56 Body Mass Index 31.62 (86.18 kg, 165.1 cm) al5 10/11 23:56 Pain Scale: Adult al5 MDM: 01:35 Medical Screening Exam initiated bo1 04:04 Differential diagnosis: gastritis, Reflux vs exacerbation of the hiatal hernia. Data bo1 reviewed: vital signs, lab test result(s). I considered the following discharge prescriptions or medication management in the emergency department Medications were administered in the Emergency Department. See MAR. Response to treatment: the patient's symptoms have markedly improved after treatment, Pt reports much better with the IV Reglan. ED course: Pt has lost weight of #190 post gastric sleeve. Trying to reduce "acid" containing items. She has GI to F/U with. OP trial with Reglan PO.. 10/12 01:49 Order name: CBC with Diff; Complete Time: 03:02 lg3 10/12 01:49 Order name: CMP; Complete Time: 03:02 lg3 10/12 01:49 Order name: Lipase; Complete Time: 03:02 lg3 10/12 02:00 Order name: Test, Serum; Complete Time: 03:02 bm8 10/12 01:49 Order name: IV Saline Lock; Complete Time: 01:57 lg3 10/12 01:49 Order name: Labs collected and sent; Complete Time: :57 lg3 Administered Medications: 01:56 Drug: Ondansetron IVP 4 mg IVP once; over 2 minutes Route: IVP; Site: right antecubital;bm8 02:30 Follow up: Response: No adverse reaction; Marked relief of symptoms vc1 01:56 Drug: morphine IVP or IV 4 mg IVP once over 4 mins Route: IVP; Infused Over: 4 mins; bm8 Site: right antecubital; 02:30 Follow up: Response: No adverse reaction; Marked relief of symptoms; Pain is decreased vc1 01:56 Drug: NS 0.9% IV 1000 ml IV at 1 bolus Per protocol; to be given as a bolus over 60 bm8 minutes Route: IV; Rate: 1 bolus; Site: right antecubital; 02:56 Follow up: IV Status: Completed infusion; IV Intake: 1000ml vc1 02:13 Drug: metoCLOPramide IVP 10 mg IVP once; over 1 to 2 minutes Route: IVP; Site: left vc1 antecubital; 04:31 Follow up: Response: No adverse reaction; Marked relief of symptoms vc1 Disposition Summary: 10/12/24 04:07 Discharge Ordered Notes: Location: Home bo1 Problem: chronic bo1 Symptoms: have improved bo1 Condition: Stable bo1 Diagnosis - Gastro-esophageal reflux disease without esophagitis bo1 Followup: bo1 - With: Private Physician - When: Upon discharge from the Emergency Department - Reason: Recheck today's complaints, Continuance of care Discharge Instructions: - Discharge Summary Sheet bo1 - Food Choices for Gastroesophageal Reflux Disease, Adult bo1 - Gastroesophageal Reflux Disease, Adult bo1 Forms: - Medication Reconciliation Form bo1 - Antibiotic Education bo1 - Prescription Opioid Use bo1 - Patient Portal Instructions bo1 - Leadership Thank You Letter bo1 Prescriptions: - Reglan 10 mg Oral tablet - take 4 tablet ORAL route every 6 hours; 40 tablet; Refills: 0, Product bo1 Selection Permitted Signatures: Dispatcher [employer] Ewa Bills RN RN lg3 Yuliya Linares RN RN vc1 Murtaza Braun MD MD bo1 Aayush Spear RN RN bm8 Valarie Schafer RN RN al5 Corrections: (The following items were deleted from the chart) 10/11 23:56 23:54 Home Meds: estradiol 2 mg Oral tab 6 tabs once daily; al5 al5 56 23:54 Home Meds: Folic Acid Oral; al5 al5 23:54 Home Meds: Vitamin Oral; al5 al5
--- NOTE | 2024-10-12 04:08 | ER ---
Nurse's Notes [facility] Name: Olimpia Paz Age: 34 yrs Sex: Female : 1990 Arrival Date: 10/11/2024 Time: 23:35 Bed 6 Private MD: Galileo Cabral Diagnosis: Gastro-esophageal reflux disease without esophagitis Presentation: 10/11 23:56 Chief complaint: Patient states: c/o umbilical abdominal pain along with nausea, al5 vomiting, and constipation. has been an ongoing issue but got worse today. currently being treated for a hiatal hernia by dr engle and has been on protonix, zofran, tylenol, and ibuprofen with no relief. has had the hiatal hernia diagnosis since February 2024. Coronavirus screen: At this time, the client does not indicate any symptoms associated with coronavirus-19. Ebola Screen: No symptoms or risks identified at this time. Initial Sepsis Screen: Does the patient meet any 2 criteria? No. Patient's initial sepsis screen is negative. Does the patient have a suspected source of infection? No. Patient's initial sepsis screen is negative. Risk Assessment: Do you want to hurt yourself or someone else? Patient reports no desire to harm self or others. Onset of symptoms was October 11, 2024. 23:56 Method Of Arrival: Ambulatory al5 23:56 Acuity: ESTEFANI 3 al5 Triage Assessment: 23:58 General: Appears in no apparent distress. uncomfortable, ill, Behavior is calm, al5 cooperative. Pain: Complains of pain in umbilical area, right lower quadrant and left lower quadrant Pain currently is 10 out of 10 on a pain scale. EENT: No signs and/or symptoms were reported regarding the EENT system. Neuro: Level of Consciousness is awake, alert, obeys commands, Oriented to person, place, time, situation. Cardiovascular: Capillary refill < 3 seconds Patient's skin is warm and dry. Respiratory: Airway is patent Respiratory effort is even, unlabored, Respiratory pattern is regular, symmetrical. GI: Abdomen is flat, non-distended, Reports lower abdominal pain, constipation, nausea, vomiting, umbilical pain. : No signs and/or symptoms were reported regarding the genitourinary system. Derm: Skin is intact, is healthy with good turgor, Skin is pink, warm \T\ dry. normal. Musculoskeletal: No signs and/or symptoms reported regarding the musculoskeletal system. 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 - Infectious Disease History:: Denies. - Social history:: Smoking status: Patient denies any tobacco usage or history of. Screenin/01 00:00 [facility] ED Fall Risk Assessment (Adult) History of falling in the last 3 months, al5 including since admission No falls in past 3 months (0 pts) Confusion or Disorientation No (0 pts) Intoxicated or Sedated No (0 pts) Impaired Gait No (0 pts) Mobility Assist Device Used No (0 pt) Altered Elimination No (0 pt) Score/Fall Risk Level 0 - 2 = Low Risk Oriented to surroundings, Maintained a safe environment, Hourly rounding (assess needs \T\ fall precautionary measures) done. Abuse screen: Denies threats or abuse. Denies injuries from another. Nutritional screening: No deficits noted. Tuberculosis screening: No symptoms or risk factors identified. Assessment: 00:00 Reassessment: see triage assessment. al5 02:51 Reassessment: Patient and/or family updated on plan of care and expected duration. Pain vc1 level reassessed. Patient is alert, oriented x 3, equal unlabored respirations, skin warm/dry/pink. Patient states feeling better. Patient states symptoms have improved. 03:45 Reassessment: Patient appears in no apparent distress at this time. No changes from vc1 previously documented assessment. Patient and/or family updated on plan of care and expected duration. Pain level reassessed. Patient is alert, oriented x 3, equal unlabored respirations, skin warm/dry/pink. 04:28 Reassessment: Patient appears in no apparent distress at this time. No changes from vc1 previously documented assessment. Patient and/or family updated on plan of care and expected duration. Pain level reassessed. Patient is alert, oriented x 3, equal unlabored respirations, skin warm/dry/pink. Patient states feeling better. 04:29 GI: Bowel sounds present X 4 quads. Abd is soft Abd is non tender. vc1 Vital Signs: 10/11 23:56 BP 129 / 91; Pulse 86; Resp 18; Temp 98.5; Pulse Ox 99% on R/A; Weight 86.18 kg; Height al5 5 ft. 5 in. ; Pain 10/10; 10/12 00:00 BP 129 / 91; Pulse 86; Resp 18; Temp 98.5; Pulse Ox 99% ; mm11 02:30 BP 126 / 90; Pulse 70; Resp 18; Pulse Ox 100% ; vc1 03:30 BP 139 / 89; Pulse 72; Resp 18; Pulse Ox 100% ; vc1 04:29 BP 120 / 83; Pulse 78; Resp 16; Pulse Ox 100% ; vc1 10/11 23:56 Body Mass Index 31.62 (86.18 kg, 165.1 cm) al5 10/11 23:56 Pain Scale: Adult al5 ED Course: 10/11 23:36 Patient arrived in ED. am2 23:37 Galileo Cabral MD is Private Physician. am2 23:58 Triage completed. al5 23:59 Arm band placed on right wrist. Patient placed in waiting room, in view of staff al5 members, on pulse oximetry, Patient notified of wait time. 10/12 00:00 Provided Education on: plan of care. al5 00:00 No provider procedures requiring assistance completed. al5 01:05 Patient has correct armband on for positive identification. Placed in gown. Bed in low vc1 position. Call light in reach. Pulse ox on. NIBP on. 01:35 Murtaza Braun MD is Attending Physician. bo1 01:44 Inserted saline lock: 20 gauge in right antecubital area, using aseptic technique. mm11 Blood collected. Flushed with 10 mL NS. 02:05 Yuliya Linares, WAYLON is Primary Nurse. vc1 04:30 IV discontinued, intact, bleeding controlled, No redness/swelling at site. Pressure vc1 dressing applied. Administered Medications: 01:56 Drug: Ondansetron IVP 4 mg IVP once; over 2 minutes Route: IVP; Site: right antecubital;bm8 02:30 Follow up: Response: No adverse reaction; Marked relief of symptoms vc1 01:56 Drug: morphine IVP or IV 4 mg IVP once over 4 mins Route: IVP; Infused Over: 4 mins; bm8 Site: right antecubital; 02:30 Follow up: Response: No adverse reaction; Marked relief of symptoms; Pain is decreased vc1 01:56 Drug: NS 0.9% IV 1000 ml IV at 1 bolus Per protocol; to be given as a bolus over 60 bm8 minutes Route: IV; Rate: 1 bolus; Site: right antecubital; 02:56 Follow up: IV Status: Completed infusion; IV Intake: 1000ml vc1 02:13 Drug: metoCLOPramide IVP 10 mg IVP once; over 1 to 2 minutes Route: IVP; Site: left vc1 antecubital; 04:31 Follow up: Response: No adverse reaction; Marked relief of symptoms vc1 Medication: 00:00 VIS not applicable for this client. al5 Intake: 02:56 IV: 1000ml; Total: 1000ml. vc1 Outcome: 04:07 Discharge ordered by . bo1 04:30 Discharged to home ambulatory, vc1 04:30 Condition: stable 04:30 Discharge instructions given to patient, Instructed on discharge instructions, follow up and referral plans. medication usage, Demonstrated understanding of instructions, follow-up care, medications, Prescriptions given X 1, 04:42 Patient left the ED. lg3 Signatures: Valarie Calvin am2 Ewa Leroy RN RN lg3 Yuliya Linares RN RN vc1 Murtaza Braun MD MD bo1 Aayush Spear RN RN bm8 Valarie Schafer RN RN al5 america mirza mm11 Corrections: (The following items were deleted from the chart) 10/11 23:56 23:54 Home Meds: estradiol 2 mg Oral tab 6 tabs once daily; al5 al5 23:56 23:54 Home Meds: Folic Acid Oral; al5 al5 23:56 23:54 Home Meds: Vitamin Oral; al5 al5
[2024-10-12 04:55] VITALS: TEMP 98.5
[2024-10-12 05:06] VITALS: O2SAT 100
[2024-10-12 05:08] VITALS: BP 120/83
== END 2024-10-12 04:42 | disposition home or self-care (01) ==
LOC: ER 23:35
DX: K21.9 Gastro-esophageal reflux disease without esophagitis (principal); Z98.84 Bariatric surgery status; Z98.82 Breast implant status
CPT/HCPCS: 85025; 36415; 84703; 83690; 80053; 99284; J2765; J2405; J7030